=== PATIENT | female | born 1970 | race Caucasian/White ===

== ENCOUNTER → 2023-10-06 | Outpatient (CLI) | payer OTHER ==
[~2023-10-06] MED LIST: ACET325 PO; AMLO5 PO; AMOCLA875 PO; BASAGLAR K100 UNIT/6 SC; BUME1 PO; Benadryl Itch28.3 G1 TOP; CALC.25 PO; Celexa20 MG PO; FURO40 PO; GLIP2.5ER PO; HUMALOG KW100 UNIT/1 SC; INSULANPEN SC; LEVFLO500 PO; LOSA25 PO; METO25ER PO; NIFE60ER PO; PANT40 PO; SODBIC650 PO; TRAM50 PO; VISBIOME 112.51 EACH PO
== END | disposition home or self-care (01) ==
LOC: LAB SHORT 17:03 → LAB 17:03
DX: N39.0 Urinary tract infection, site not specified (principal)
CPT/HCPCS: 87077; 87086; 87186

== ENCOUNTER → 2023-10-21 | Outpatient (CLI) | payer OTHER ==
[2023-10-21 16:36] LABS: Percent Saturation 31.4 % (15.0-50.0)
== END | disposition home or self-care (01) ==
LOC: LAB SHORT 15:43
PROVIDERS: Internal Medicine Hematology & Oncology
DX: E61.1 Iron deficiency (principal)
CPT/HCPCS: 82728; 83540; 83550

== ENCOUNTER 2023-11-04 10:01 | Day surgery (SDC) | payer OTHER ==
[2023-11-04] VITALS (8 sets, daily range): BP systolic 138–218; BP diastolic 70–119
[~2023-11-04] VITALS: Ht 157.5 cm; Wt 102.1 kg
[~2023-11-04 10:01] MED LIST changes: +ARANESP100 MCG/0. SC; +CEPH250A PO; +METO2.5 PO; +VANCOCIN HCL125 MG PO; +VISBIOME PROBI1 EACH PO
[2023-11-04] MEDS ORDERED: Heparin Sodium 1000 Units/ML 10ML MDV ONE (10:27)
[2023-11-04] MEDS ORDERED: NS 100 ML IV ONE (10:27)
[2023-11-04] MEDS ORDERED: NS 500 ML IV ONE (11:46)
[2023-11-04] MEDS ORDERED: Midazolam HCl 1MG / ML 2ML Vial ONE (12:05)
[2023-11-04] MEDS ORDERED: FentaNYL Citrate 50 MCG/ML 2 ML Injection ONE (12:05)
[2023-11-04] MEDS ORDERED: Heparin Sodium 10,000 Units/ML 1ML MDV ONE ×2 (12:20→12:50)
[2023-11-04] MEDS ORDERED: HydrALAZINE HCl 20 MG / ML 1ML Vial ONE (12:39)
--- NOTE | 2023-11-04 13:24 | NUR ---
PT RETURNED TO RECOVERY ROOM IN BED. R IJ PERMCATH SITE SOFT NON-TENDER WITH NO HEMATOMA, SLIGHT OOZING INITIAL AT SUTURE SITE, OTHERWISE NO BLEEDING AND INTACT DRESSING. CALL LIGHT IN REACH.
--- NOTE | 2023-11-04 13:34 | NUR ---
NO CHANGES TO [facility] SITE. PT'S NIECE IN ROOM.
--- NOTE | 2023-11-04 13:40 | NUR ---
PT SITTING UP DRINKING APPLE JUICE AND EATING CHEESE. NO CHANGES TO [facility] SITE.
--- NOTE | 2023-11-04 14:29 | NUR ---
NO CHANGES TO R IJ PERMCATH SITE. 22 G IV DISCONTINUED FROM LEFT FA WITH INTACT CANNULA. PT ESCORTED OUT VIA WHEELCHAIR ESCORT.
== END 2023-11-04 16:04 | disposition home or self-care (01) ==
LOC: MHTC 10:01
DX: Z49.01 Encounter for fitting and adjustment of extracorporeal dialysis catheter (principal); I12.0 Hypertensive chronic kidney disease with stage 5 chronic kidney disease or end stage renal disease; E11.22 Type 2 diabetes mellitus with diabetic chronic kidney disease; N18.6 End stage renal disease; Z79.4 Long term (current) use of insulin; Z79.899 Other long term (current) drug therapy
CPT/HCPCS: 76937; 99152; 99153; C1750; C1769; J0360; J1644; J2250; J3010; J7040

== ENCOUNTER 2023-11-11 11:31 | Observation (INO) | payer OTHER ==
[2023-11-11] VITALS (13 sets, daily range): BP systolic 150–231; BP diastolic 71–127
[~2023-11-11] VITALS: Ht 157.5 cm; Wt 103.5 kg
[2023-11-11] MEDS ORDERED: Ondansetron HCl 2 MG / ML 2ML Vial IV PRN (13:05)
[2023-11-11] MEDS ORDERED: Acetaminophen 325 MG TABLET PO PRN (13:05)
[2023-11-11] MEDS ORDERED: Anticoagulant Sod Citrate Soln 3 ML SYR INJ PRN (13:30)
--- NOTE | 2023-11-11 13:32 | NUR ---
DIRECT ADMIT PT ADMITED TO RM AND SETTELED PT IS REFUSING LABS AND IV ACESSES AT THIS TIME. PT STATED SHE WAS TO COME GET DIALYSIS THEN LEAVE THAT IF THEY DO NOT HURRY UP AND DO DIALYSIS THAT SHE WILL JUST LEAVE.
--- NOTE | 2023-11-11 14:52 | NUR ---
CONTRACT PROJECT MANAGER FROM [facility] CALLED ET STATED THAT THEY NEED A CURRENT H&P,REFERRAL FOR DIALYSIS AND DIALYSIS FLOW SHEET. THEY ALSO STATED THAT PT CALLED AND NO LONGER WANTED TO BE A [facility] PT AND THAT SHE WANTED TO SWITCH. AFTER TALKING WITH PT WHILE ISRA WAS IN ROOM PT HAS AGREEED TO CONT TX WITH DR. DHALIWAL. ISRA ALSO STATED TO THIS NURSE THAT HE HAS ALREADY FILLED THE PAPERS OUT. THIS NURSE WENT AND SPOKE WITH CARE MANAGEMENT WHO SAID THEY WOULD LOOK INTO GETTING INFO OVER TO [facility].
[2023-11-11] MEDS ORDERED: Vancomycin HCl 125 MG Cap PO SCH (15:55)
[2023-11-11] MEDS ORDERED: Cephalexin Monohydrate 250 MG Cap PO SCH (16:00)
[2023-11-11] MEDS ORDERED: Sodium Bicarbonate 650 MG Tab PO PRN (16:00)
[2023-11-11] MEDS ORDERED: Calcium Acetate 667 MG Gel Cap PO SCH (17:30)
[2023-11-11] MEDS ORDERED: Insulin Human Lispro 100 Units/ML 3ML Syringe SC SCH (17:30)
--- NOTE | 2023-11-11 18:33 | NUR ---
DISCHARGE SUMMARY PT COMPLETED DIALYSIS AND DC THIS SHIFT PT STATED UNDERSTANDING RE: DC INSTRUCTION . PT HAD 1L OF FLUID REMOVED FROM DIALYSIS. DIALYSIS NURSE STATED SHE STOPPED PULLING FLUID OFF D/T PT C/O LEG CRAMPS. PT REFUSED TO RIDE IN A WHEELCHAIR DOWN TO PRIVATE VEHCLE BUT WAS ACCOMPANIED OFF UNIT AND TO PRIVATE VEHICLE BY CLEANING CREW MEMBER.
[2023-11-11] MEDS ORDERED: Insulin Glargine-Yfgn 100 Unit/mL 3 ML SYR SC SCH (21:00)
[2023-11-12] MEDS ORDERED: Pantoprazole Sodium 40 MG Tab PO SCH (06:00)
[2023-11-12] MEDS ORDERED: NIFEdipine 60 MG TabCR PO SCH (09:00)
[2023-11-12] MEDS ORDERED: Heparin Sodium,Porcine 5,000 UNIT/0.5 ML SDV SC SCH (09:00)
[2023-11-12] MEDS ORDERED: Citalopram Hydrobromide 20 MG Tab PO SCH (09:00)
[2023-11-12] MEDS ORDERED: Vitamin B Cmplx/Vit C/Folic Ac 1 Tab PO SCH (09:00)
[2023-11-12] MEDS ORDERED: Bumetanide 1 MG Tab PO SCH (09:00)
[2023-11-12] MEDS ORDERED: Metoprolol Succinate 25 MG TABCR PO SCH (09:00)
[2023-11-12] MEDS ORDERED: Losartan Potassium 25 MG Tab PO SCH (09:00)
[2023-11-13] MEDS ORDERED: Calcitriol 0.25 MCG Cap PO SCH (09:00)
== END 2023-11-11 18:37 | disposition home or self-care (01) ==
LOC: MEDS 11:31
PROVIDERS: ADMIT Internal Medicine
DX: I12.0 Hypertensive chronic kidney disease with stage 5 chronic kidney disease or end stage renal disease (principal); E11.22 Type 2 diabetes mellitus with diabetic chronic kidney disease; N18.6 End stage renal disease; D63.1 Anemia in chronic kidney disease; Z99.2 Dependence on renal dialysis; E87.5 Hyperkalemia; Z88.2 Allergy status to sulfonamides; Z88.6 Allergy status to analgesic agent; Z79.4 Long term (current) use of insulin; Z88.8 Allergy status to other drugs, medicaments and biological substances; Z79.899 Other long term (current) drug therapy; Z66 Do not resuscitate
CPT/HCPCS: A9270; G0257; G0378; J1815

== ENCOUNTER 2024-01-26 07:57 | Emergency (ER) | payer OTHER ==
[~2024-01-26] VITALS: Ht 157.5 cm; Wt 100.7 kg
[~2024-01-26 07:57] MED LIST changes: +CARV6.25 PO; +CARVEDILOL6.25 MG PO
[2024-01-26 08:01] VITALS: BP 199/105
[2024-01-26] MEDS ORDERED: Alteplase Recombinant 2 MG / Vial IV ONE ×2 (08:25)
--- NOTE | 2024-01-26 09:28 | NUR ---
DIALYSIS NURSE CONTACTED APPROX 0823AM C/O PT IN ER24 WITH A NON FUNCTIONING HEMODIALYSIS CATHETER. TO DIALYSIS RM TO PREP FOR PROCEDURE AT 0845AM. 0900AM PT RM ER24. PT SITTING IN BED STATES THAT DIALYSIS CLINIC HAS STRUGGLED WITH THE LAST FEW TREATMENTS DUE TO NON FUNCTIONING CVC. UPON INITAL ASSESSMENT CVC IS WNL. DRESSING IS CLEAN DRY AND INTACT AND DISINFECTING CAPS ON LUMENS. ARTERIAL LUMEN WAS SLUGGISH ON ASPIRATION, GIVING MINIMAL BLOOD FLOW. VENOUS LUMEN UNABLE TO ASPIRATE COMPLETELY LEAVING RESTRICTIVE FLOW. ACTIVASE/CATHFLOW ADMINISTERED INTO EACH LUMEN. PT INSTRUCTED TO CONTACT CLINIC FOR FOLLOWUP APPOINTMENT WITH OUTPATIENT.
== END 2024-01-26 09:25 | disposition home or self-care (01) ==
LOC: ER 07:57
DX: T82.49XA Other complication of vascular dialysis catheter, initial encounter (principal); Z79.4 Long term (current) use of insulin; Z79.899 Other long term (current) drug therapy
CPT/HCPCS: 36593; 99283-25; J2997

== ENCOUNTER 2024-05-19 06:13 | Emergency (ER) | payer MEDICARE, OTHER ==
[~2024-05-19] VITALS: Ht 157.5 cm; Wt 103.4 kg
[2024-05-19] MEDS ORDERED: GABA100 PO (08:49)
[2024-05-19 08:50] VITALS: BP 195/92
[2024-05-19] MEDS ORDERED: HYDHCL25 PO (08:51)
[2024-05-19 09:04] VITALS: BP 200/99
[2024-05-19 09:31] LABS: International Normalized Ratio 1.03
[2024-05-19 09:34] LABS: Bun/Creatinine Ratio 9.2 (12.0-20.0); Calcium, Blood 8.6 mg/dL (8.5-10.1); Creatinine, Blood 6.28 mg/dL (0.40-1.00); Potassium, Blood 3.8 mmol/L (3.5-5.5)
[2024-05-19] MEDS ORDERED: FentaNYL Citrate 50 MCG/ML 2 ML Injection ONE (09:53)
[2024-05-19] MEDS ORDERED: Heparin Sodium 1000 Units/ML 10ML MDV ONE (09:53)
[2024-05-19] MEDS ORDERED: Midazolam HCl 1MG / ML 2ML Vial ONE (09:53)
[2024-05-19] MEDS ORDERED: NS 2,000 ML IV ONE (09:54)
[2024-05-19] MEDS ORDERED: HydrALAZINE HCl 20 MG / ML 1ML Vial ONE (10:18)
[2024-05-19] MEDS ORDERED: Alteplase Recombinant 2 MG / Vial ONE (10:55)
[2024-05-19 11:45] VITALS: BP 173/91
--- NOTE | 2024-05-19 12:05 | NUR ---
PT VERBALIZED UNDERSTANDING OF WRITTEN AND VERBAL D/C INST. IV REMOVED. R UPPER ARM DRSG CDI, NO BLEEDING OR SWELLING.
== END 2024-05-19 07:35 | disposition left against medical advice (07) ==
LOC: ER 06:13
PROVIDERS: Radiology Diagnostic Radiology
DX: T82.898A Other specified complication of vascular prosthetic devices, implants and grafts, initial encounter (principal); N18.6 End stage renal disease; Z53.29 Procedure and treatment not carried out because of patient's decision for other reasons
CPT/HCPCS: 36905; 75710; 76937; 80048; 85610; 99152; 99153; C1725; C1769; C1887; C1894; J0360; J1644; J2250; J2997; J3010; J7030; Q9967

== ENCOUNTER 2024-07-03 06:32 | Observation (INO) | payer MEDICARE, OTHER ==
[~2024-07-03] VITALS: Ht 157.5 cm; Wt 108.2 kg
[~2024-07-03 06:32] MED LIST changes: +GABA100 PO; +HYDHCL25 PO
[2024-07-03 08:19] LABS: BASOPHILS ABSOLUTE AUTO 0.04 K/mm3 (0.00-0.23); BASOPHILS PERCENT AUTO 0 % (0-2); EOSINOPHILS PERCENT AUTO 2 % (0-6); Hematocrit 36.6 % (33.0-51.0); Hemoglobin 12.1 g/dL (11.5-16.0); IMMATURE GRAN ABSOLUTE AUTO 0.03 K/mm3 (0.00-0.10); IMMATURE GRAN PERCENT AUTO 0 % (0-1); LYMPHOCYTES ABSOLUTE AUTO 2.12 K/mm3 (0.84-5.20); LYMPHOCYTES PERCENT AUTO 21 % (21-46); MONOCYTES ABSOLUTE AUTO 0.59 K/mm3 (0.16-1.47); MONOCYTES PERCENT AUTO 6 % (4-13); Mean Corpuscular HGB 29.8 pg (26.0-34.0); Mean Corpuscular HGB Conc 33.1 g/dL (31.5-36.5); Mean Corpuscular Volume 90 fL (80-100); Mean Platelet Volume 11.7 fL (9.1-12.4); NEUTROPHILS ABSOLUTE AUTO 7.28 K/mm3 (1.96-9.15); NEUTROPHILS PERCENT AUTO 71 % (41-73); Platelet Count 195 K/mm3 (150-400); RDW Coefficient Variation 14.4 % (11.7-14.2); RDW Standard Deviation 47.6 fL (35.1-46.3); Red Blood Cell Count 4.06 M/mm3 (3.80-5.20); White Blood Cell Count 10.26 K/mm3 (4.00-11.30)
[2024-07-03 08:27] LABS: Albumin, Blood 3.8 g/dL (3.4-5.0); Bilirubin, Total 0.8 mg/dL (0.1-1.0); Bun/Creatinine Ratio 13.5 (12.0-20.0); Calcium, Blood 8.1 mg/dL (8.5-10.1); Creatinine, Blood 6.73 mg/dL (0.40-1.00); Total Protein, Blood 7.8 g/dL (6.4-8.2)
[2024-07-03] MEDS ORDERED: FLU VACC TS2024-25(6MOS UP)/PF 45 MCG/0.5 ML SYRINGE IM SCH (09:50)
[2024-07-03] MEDS ORDERED: Insulin Regular 100 UNIT/ML 10ML Vial SC SCH (11:30)
[2024-07-03 15:11] VITALS: BP 135/92
[2024-07-03] MEDS ORDERED: Bumetanide2 MG PO (15:23)
--- NOTE | 2024-07-03 18:51 | NUR ---
PT ADMITTED INTO ROOM 327 AT 1500 VIA WHEELCHAIR, AMBULATED TO BED INDEPENDANT. ORIENTED TO ROOM AND CALL LIGHT. CALL TO [facility], PLAN TO PROCEDE WITH PROCEDURE TOMORROW. PT MAY EAT DINNER AND NPO AFTER MN WITH CLEARS SPARINGLY UNTIL AM. WILL REPORT TO NOC RN
--- NOTE | 2024-07-03 18:53 | NUR ---
SUMMARY- PT A/O X4, INDEPENTANT. AWAITING GRAPH REVASC WITH DR DAVIS TOMORROW; WAS UNABLE TO FIT PT IN FOR PROCEDURE TODAY. PT TOLERATING FOOD AND FLUID. DENIES PAIN. GRAFT R SIDE/NO THRILL - PT INDEPENDANT IN THE ROOM. REPORTED ALL TO CASE OLIVAS
[2024-07-03 20:01] VITALS: BP 165/91
[2024-07-04] VITALS (7 sets, daily range): BP systolic 135–177; BP diastolic 83–121
--- NOTE | 2024-07-04 05:12 | NUR ---
SHIFT SUMMARY PATIENT IS ALERT AND ORIENTED. PATIENT HAS HAD NO ACUTE EVENTS THIS SHIFT. VITAL SIGNS REVIEWED. PATIENT HAS BEEN IND THIS SHIFT. PATIENT HAS BEEN NPO FOR GRAFT REVASC SINCE 0400. BED IN LOCKED AND LOWEST POSITION. CALL LIGHT IN PLACE.
[2024-07-04 05:59] LABS: BASOPHILS ABSOLUTE AUTO 0.04 K/mm3 (0.00-0.23); BASOPHILS PERCENT AUTO 1 % (0-2); EOSINOPHILS ABSOLUTE AUTO 0.21 K/mm3 (0.00-0.68); EOSINOPHILS PERCENT AUTO 3 % (0-6); Hematocrit 33.8 % (33.0-51.0); Hemoglobin 11.3 g/dL (11.5-16.0); IMMATURE GRAN ABSOLUTE AUTO 0.01 K/mm3 (0.00-0.10); IMMATURE GRAN PERCENT AUTO 0 % (0-1); LYMPHOCYTES ABSOLUTE AUTO 1.57 K/mm3 (0.84-5.20); LYMPHOCYTES PERCENT AUTO 22 % (21-46); MONOCYTES PERCENT AUTO 7 % (4-13); Mean Corpuscular HGB 30.3 pg (26.0-34.0); Mean Corpuscular HGB Conc 33.4 g/dL (31.5-36.5); Mean Corpuscular Volume 91 fL (80-100); Mean Platelet Volume 11.4 fL (9.1-12.4); NEUTROPHILS ABSOLUTE AUTO 4.67 K/mm3 (1.96-9.15); NEUTROPHILS PERCENT AUTO 67 % (41-73); Platelet Count 143 K/mm3 (150-400); RDW Coefficient Variation 13.7 % (11.7-14.2); RDW Standard Deviation 45.6 fL (35.1-46.3); Red Blood Cell Count 3.73 M/mm3 (3.80-5.20)
[2024-07-04 06:33] LABS: Bun/Creatinine Ratio 13.6 (12.0-20.0); Calcium, Blood 7.6 mg/dL (8.5-10.1); Creatinine, Blood 6.47 mg/dL (0.40-1.00); Potassium, Blood 4.2 mmol/L (3.5-5.5)
[2024-07-04] MEDS ORDERED: NS 500 ML IV ONE ×2 (14:24→17:02)
[2024-07-04] MEDS ORDERED: Heparin Sodium 1000 Units/ML 10ML MDV ONE ×3 (14:24→17:02)
[2024-07-04] MEDS ORDERED: NS 1,000 ML IV ONE ×3 (15:51→17:12)
[2024-07-04] MEDS ORDERED: Midazolam HCl 1MG / ML 2ML Vial ONE ×2 (15:51→16:20)
[2024-07-04] MEDS ORDERED: FentaNYL Citrate 50 MCG/ML 2 ML Injection ONE ×2 (15:51→16:59)
[2024-07-04] MEDS ORDERED: Alteplase Recombinant 2 MG / Vial ONE (16:26)
[2024-07-04] MEDS ORDERED: HydrALAZINE HCl 20 MG / ML 1ML Vial ONE (16:29)
--- NOTE | 2024-07-04 17:41 | NUR ---
PT TAKEN TO DEPUTY HEAD FOR GRAFT REVISION 1544 IN WHEELCHAIR. CALLED TELE TO INFORM OF LOCAL
--- NOTE | 2024-07-04 17:43 | NUR ---
SUMMARY-PT A/O X4, VERBAL AND PLEASANT. INDEPENDANT IN ROOM. PT NPO ALL DAY. TAKEN FOR GRAFT REVISION WITH DR DAVIS [id number], AWAITING PROCEDURES COMPLETION-
--- NOTE | 2024-07-04 19:06 | NUR ---
GRAFT PROCEDURE COMPLETE, PT BROUGHT BACK TO ROOM 1845 VIA WHEELCHAIR, SBA BACK TO BED. GRAFT COVERED WITH TEGADERM, PURSE STRINGS SHOWING. THRILL NOTED UPON LIGHT PALP. BRUISING PRESENT, WILL MONITOR. NO ACTIVE BLEEDING NOTED. VSS. PT DENIES PAIN
[2024-07-04] MEDS ORDERED: Gabapentin 100 MG Cap PO SCH (21:00)
[2024-07-04] MEDS ORDERED: Insulin Glargine-Yfgn 100 Unit/mL 3 ML SYR SC SCH (21:00)
[2024-07-05] VITALS (16 sets, daily range): BP systolic 91–155; BP diastolic 45–96
--- NOTE | 2024-07-05 04:51 | NUR ---
SHIFT SUMMARY: PATIENT A/OX4, PLEASANT AND COOPERATIVE c CARE. PATIENT DENIES GENERALIZED PAIN, CP/PRESSURE, SOB, N/V AND DIZZINESS. PATIENT ON TELE, SR HR IN THE 70'S BPM. PATIENT AMBULATED IN HALLWAY X1 THIS SHIFT. PATIENT SLEPT FOR ABOUT 5 HRS THIS SHIFT. DRESSING TO BART C/D/I. PATIENT HAS HAD NO OUTPUT THIS SHIFT, AND REPORTS SHE HARDLY PRODUCED URINE. PATIENT IS HOPING TO DIALYZE TODAY AND BE DISCHARGE HOME AFTERWARD. VITAL SIGNS REVIEWED. CALL LIGHT IN REACH.
[2024-07-05 07:09] LABS: Albumin, Blood 3.4 g/dL (3.4-5.0); Anion Gap 12 mmol/L (3-11); Blood Urea Nitrogen 77 mg/dL (8-24); Bun/Creatinine Ratio 13.1 (12.0-20.0); CO2, Blood 20 mmol/L (21-32); Calcium, Blood 7.6 mg/dL (8.5-10.1); Chloride, Blood 110 mmol/L (98-108); Creatinine, Blood 5.86 mg/dL (0.40-1.00); Glomerular Filtration Rate 8 (60-); Glucose, Blood 197 mg/dL (70-99); Magnesium, Blood 2.8 mg/dL (1.6-2.4); Phosphorus, Blood 5.2 mg/dL (2.5-4.9); Potassium, Blood 4.5 mmol/L (3.5-5.5); Sodium, Blood 137 mmol/L (136-145)
[2024-07-05] MEDS ORDERED: Carvedilol 6.25 MG Tab PO SCH (08:00)
[2024-07-05] MEDS ORDERED: Bumetanide 1 MG Tab PO SCH (09:00)
[2024-07-05] MEDS ORDERED: NIFEdipine 60 MG TabCR PO SCH (09:00)
[2024-07-05] MEDS ORDERED: Citalopram Hydrobromide 20 MG Tab PO SCH (09:00)
[2024-07-05] MEDS ORDERED: Calcitriol 0.25 MCG Cap PO SCH (09:00)
[2024-07-05] MEDS ORDERED: Heparin Sodium 1000 Units/ML 10ML MDV ONE (10:46)
[2024-07-05] MEDS ORDERED: NS 250 ML IV ONE (10:46)
[2024-07-05] MEDS ORDERED: NS 500 ML IV ONE (11:01)
--- NOTE | 2024-07-05 11:12 | NUR ---
PT UNABLE TO BE DIALIZED. CURRENTLY IN SECURITY AND COMPLIANCE PROJECT MANAGER HAVING CATH PLACED FOR DIALYSIS
[2024-07-05] MEDS ORDERED: NS 50 ML IV ONE (11:29)
[2024-07-05] MEDS ORDERED: CeFAZolin Sodium 2,000 MG VIAL ONE (11:29)
--- NOTE | 2024-07-05 12:08 | NUR ---
PT RETURNED TO FROM FROM PERMACATH PLACEMENT. RN STATES NO SEDATION, ONLY LOCAL. STATES DID HEPARIN LOCK, LOW DOSE. STATES OKAY TO USE. CALLED LINSEED CAKE TRIMMER, THEY STATE WILL COME TO ROOM TO DO DIALYSIS. VISUALIZED PERMACATH SITE. NO BLEEDING NOTED.
--- NOTE | 2024-07-05 12:51 | NUR ---
BLADDER SCAN [address] DHALIWAL NOTIFIED. PER , ASK PT TO TRY TO URINATE. AND CALL IF UNABLE. PT EDUCATED. TINY, HOOD FITTER AT BEDSIDE FOR DIALYSIS.
--- NOTE | 2024-07-05 17:12 | NUR ---
PT DISCHARGED HOME. TRANSPORT PROVIDED HOME. DISCHARGE INSTRUCTIONS DISCUSSED WITH PT. NO QUESTIONS OR CONCERNS AT THIS TIME. DIALYSIS PORT DRESSING C/D/I. PT TO CONTINUE REGULAR DIALYSIS APPIONTMENTS SCHEDULED.
== END 2024-07-05 17:17 | disposition home or self-care (01) ==
LOC: ER 06:32 → MEDS 06:33 → ERHOLD 06:33 → MEDS 15:00
PROVIDERS: Emergency Medicine; Internal Medicine Nephrology; ADMIT Family Medicine
DX: T82.868A Thrombosis due to vascular prosthetic devices, implants and grafts, initial encounter (principal); I12.0 Hypertensive chronic kidney disease with stage 5 chronic kidney disease or end stage renal disease; E11.22 Type 2 diabetes mellitus with diabetic chronic kidney disease; N18.6 End stage renal disease; K74.60 Unspecified cirrhosis of liver; D64.9 Anemia, unspecified; Z99.2 Dependence on renal dialysis; Z79.4 Long term (current) use of insulin; Z79.899 Other long term (current) drug therapy
CPT/HCPCS: 36415; 36558; 36905; 51701; 76937; 77001; 80048; 80053; 80069; 82947; 83735; 85018; 85025; 99152; 99153; 99285; A9270; C1725; C1750; C1769; C1887; C1894; G0257; G0378; J0360; J0690; J1644; J1815; J2250; J2997; J3010; J7030; J7040; J7050; Q9967

== ENCOUNTER 2024-07-19 05:25 | Emergency (ER) | payer MEDICARE, OTHER ==
[~2024-07-19] VITALS: Ht 157.5 cm; Wt 103.4 kg
[~2024-07-19 05:25] MED LIST changes: +Bumetanide2 MG PO
[2024-07-19 06:16] LABS: BASOPHILS ABSOLUTE AUTO 0.05 K/mm3 (0.00-0.23); BASOPHILS PERCENT AUTO 1 % (0-2); EOSINOPHILS ABSOLUTE AUTO 0.17 K/mm3 (0.00-0.68); EOSINOPHILS PERCENT AUTO 2 % (0-6); Hematocrit 35.8 % (33.0-51.0); Hemoglobin 11.9 g/dL (11.5-16.0); IMMATURE GRAN ABSOLUTE AUTO 0.03 K/mm3 (0.00-0.10); IMMATURE GRAN PERCENT AUTO 0 % (0-1); LYMPHOCYTES ABSOLUTE AUTO 1.32 K/mm3 (0.84-5.20); LYMPHOCYTES PERCENT AUTO 13 % (21-46); MONOCYTES ABSOLUTE AUTO 0.99 K/mm3 (0.16-1.47); MONOCYTES PERCENT AUTO 10 % (4-13); Mean Corpuscular HGB 29.8 pg (26.0-34.0); Mean Corpuscular HGB Conc 33.2 g/dL (31.5-36.5); Mean Corpuscular Volume 90 fL (80-100); Mean Platelet Volume 11.3 fL (9.1-12.4); NEUTROPHILS ABSOLUTE AUTO 7.26 K/mm3 (1.96-9.15); NEUTROPHILS PERCENT AUTO 74 % (41-73); Platelet Count 141 K/mm3 (150-400); RDW Coefficient Variation 14.3 % (11.7-14.2); RDW Standard Deviation 46.4 fL (35.1-46.3); Red Blood Cell Count 3.99 M/mm3 (3.80-5.20); White Blood Cell Count 9.82 K/mm3 (4.00-11.30)
[2024-07-19 06:37] LABS: Albumin, Blood 3.5 g/dL (3.4-5.0); Albumin/Globulin Ratio 0.9 (0.8-1.8); Bilirubin, Total 0.9 mg/dL (0.1-1.0); Bun/Creatinine Ratio 13.2 (12.0-20.0); Calcium, Blood 8.5 mg/dL (8.5-10.1); Creatinine, Blood 5.06 mg/dL (0.40-1.00); Potassium, Blood 3.9 mmol/L (3.5-5.5); Total Protein, Blood 7.5 g/dL (6.4-8.2)
[2024-07-19 13:30] VITALS: BP 183/94
== END 2024-07-19 14:24 | disposition home or self-care (01) ==
LOC: ER 05:25
PROVIDERS: Emergency Medicine
DX: T82.41XA Breakdown (mechanical) of vascular dialysis catheter, initial encounter (principal); Y71.8 Miscellaneous cardiovascular devices associated with adverse incidents, not elsewhere classified; I12.0 Hypertensive chronic kidney disease with stage 5 chronic kidney disease or end stage renal disease; E11.22 Type 2 diabetes mellitus with diabetic chronic kidney disease; N18.6 End stage renal disease; Z99.2 Dependence on renal dialysis; Z79.4 Long term (current) use of insulin
CPT/HCPCS: 80053; 85025; 93005; 93010; 99284-25

== ENCOUNTER 2024-07-20 05:28 | Observation (INO) | payer MEDICARE, OTHER ==
[~2024-07-20] VITALS: Ht 157.5 cm; Wt 105.0 kg
[2024-07-20 07:38] LABS: Bun/Creatinine Ratio 13.3 (12.0-20.0); Calcium, Blood 8.4 mg/dL (8.5-10.1); Creatinine, Blood 4.96 mg/dL (0.40-1.00)
[2024-07-20] MEDS ORDERED: FLU VACC TS2024-25(6MOS UP)/PF 45 MCG/0.5 ML SYRINGE IM ONE (10:20)
[2024-07-20] MEDS ORDERED: Insulin Regular 100 UNIT/ML 10ML Vial SC SCH (11:30)
[2024-07-20 13:29] VITALS: BP 191/96
[2024-07-20] MEDS ORDERED: HydrALAZINE HCl 20 MG / ML 1ML Vial IV PRN (13:45)
[2024-07-20] MEDS ORDERED: Acetaminophen 325 MG TABLET PO PRN (14:10)
[2024-07-20 14:25] VITALS: BP 147/86
[2024-07-20 14:26] VITALS: BP 147/86
[2024-07-20 15:46] VITALS: BP 164/96
--- NOTE | 2024-07-20 16:00 | NUR ---
ASSUMPTION OF CARE ASSUMED CARE OF PT FROM DEANDRE BENEDICT. PT RESTING IN BED COMFORTABLY, DENIES NEEDS AT THIS TIME. CALL LIGHT IN REACH.
[2024-07-20] MEDS ORDERED: Carvedilol 6.25 MG Tab PO SCH (17:00)
--- NOTE | 2024-07-20 17:09 | NUR ---
SHIFT SUMMARY NO ACUTE EVENTS SINCE ASSUMPTION OF CARE. PT RESTING PEACEFULLY IN BED. SINUS TACH @ 101. NPO FOR PERMACATH REPLACEMENT. CALL LIGHT IN REACH.
[2024-07-20 17:51] VITALS: BP 172/98
[2024-07-20 19:41] VITALS: BP 120/80
[2024-07-20] MEDS ORDERED: Gabapentin 100 MG Cap PO SCH (21:00)
[2024-07-20] MEDS ORDERED: Insulin Glargine-Yfgn 100 Unit/mL 3 ML SYR SC SCH (21:00)
[2024-07-21] VITALS (7 sets, daily range): BP systolic 132–158; BP diastolic 82–102
--- NOTE | 2024-07-21 05:54 | NUR ---
SHIFT SUMMARY S/P L UPPER CHEST PERMACATH COMPLICATIONS. NO ACUTE CHANGES OVERNIGHT. VSS, TELE IN USE. NPO SINCE 0000. PT STATES SHE DOESN'T PRODUCE MUCH URINE R/T ESRD. IND IN ROOM. REPORTS PAIN TOLERABLE. ANTICPATED SURGERY LATER TODAY. CALL LIGHT IN REACH, BED IN LOWEST POSITION, WILL REPORT TO DAY RN.
[2024-07-21 06:31] LABS: BASOPHILS ABSOLUTE AUTO 0.06 K/mm3 (0.00-0.23); BASOPHILS PERCENT AUTO 1 % (0-2); EOSINOPHILS ABSOLUTE AUTO 0.27 K/mm3 (0.00-0.68); EOSINOPHILS PERCENT AUTO 2 % (0-6); Hematocrit 34.2 % (33.0-51.0); Hemoglobin 11.6 g/dL (11.5-16.0); IMMATURE GRAN ABSOLUTE AUTO 0.04 K/mm3 (0.00-0.10); IMMATURE GRAN PERCENT AUTO 0 % (0-1); LYMPHOCYTES ABSOLUTE AUTO 2.18 K/mm3 (0.84-5.20); LYMPHOCYTES PERCENT AUTO 17 % (21-46); MONOCYTES ABSOLUTE AUTO 1.07 K/mm3 (0.16-1.47); MONOCYTES PERCENT AUTO 9 % (4-13); Mean Corpuscular HGB 30.2 pg (26.0-34.0); Mean Corpuscular HGB Conc 33.9 g/dL (31.5-36.5); Mean Corpuscular Volume 89 fL (80-100); Mean Platelet Volume 11.7 fL (9.1-12.4); NEUTROPHILS ABSOLUTE AUTO 8.88 K/mm3 (1.96-9.15); NEUTROPHILS PERCENT AUTO 71 % (41-73); Platelet Count 217 K/mm3 (150-400); RDW Coefficient Variation 14.6 % (11.7-14.2); RDW Standard Deviation 47.3 fL (35.1-46.3); Red Blood Cell Count 3.84 M/mm3 (3.80-5.20)
[2024-07-21 06:51] LABS: Albumin, Blood 3.2 g/dL (3.4-5.0); Anion Gap 12 mmol/L (3-11); Blood Urea Nitrogen 66 mg/dL (8-24); Bun/Creatinine Ratio 12.8 (12.0-20.0); CO2, Blood 22 mmol/L (21-32); Calcium, Blood 8.3 mg/dL (8.5-10.1); Chloride, Blood 106 mmol/L (98-108); Creatinine, Blood 5.16 mg/dL (0.40-1.00); Glomerular Filtration Rate 9 (60-); Glucose, Blood 145 mg/dL (70-99); Magnesium, Blood 2.4 mg/dL (1.6-2.4); Phosphorus, Blood 4.6 mg/dL (2.5-4.9); Potassium, Blood 4.1 mmol/L (3.5-5.5); Sodium, Blood 136 mmol/L (136-145)
[2024-07-21] MEDS ORDERED: Calcitriol 0.25 MCG Cap PO SCH (09:00)
[2024-07-21] MEDS ORDERED: Bumetanide 1 MG Tab PO SCH (09:00)
[2024-07-21] MEDS ORDERED: NIFEdipine 60 MG TabCR PO SCH (09:00)
[2024-07-21] MEDS ORDERED: Citalopram Hydrobromide 20 MG Tab PO SCH (09:00)
[2024-07-21] MEDS ORDERED: Heparin Sodium,Porcine 5,000 UNIT/0.5 ML SDV SC SCH (09:00)
[2024-07-21] MEDS ORDERED: Heparin Sodium 1000 Units/ML 10ML MDV ONE ×2 (10:32→14:51)
[2024-07-21] MEDS ORDERED: NS 250 ML IV ONE (10:32)
[2024-07-21] MEDS ORDERED: NS 500 ML IV ONE (13:25)
--- NOTE | 2024-07-21 13:28 | NUR ---
AFTERNOON SUMMARY PT RESTING IN BED WITH EYES CLOSED TODAY WAITING FOR PERMACATH PROCEDURE. NPO. DENIES ANY COMPLAINTS. INDEP IN ROOM. USES CALL LIGHT APPROPRIATELY.
--- NOTE | 2024-07-21 14:27 | NUR ---
PT TO COMMERCIAL RELATIONSHIP MANAGER AT THIS TIME. NOTIFIED DIALYSIS NURSE.
[2024-07-21] MEDS ORDERED: FentaNYL Citrate 50 MCG/ML 2 ML Injection ONE (14:37)
[2024-07-21] MEDS ORDERED: Midazolam HCl 1MG / ML 2ML Vial ONE (14:37)
--- NOTE | 2024-07-21 15:43 | NUR ---
ASSUMED CARE ASSUMED CARE OF THE PATIENT FROM PRIMARY RN. PT GETTING PICKED UP BY [facility] RN WHILE GETTING REPORT, PLAN TO GET NEW PERMACATH PLACED WITH POSSIBLE DIALYSIS AFTERWARDS OR IN THE MORNING IF UNABLE TO GET IN TODAY.
--- NOTE | 2024-07-21 20:19 | NUR ---
REPORT TAKEN TO ASSUME CARE OF PT AT AT THIS TIME. PT RESTING IN BED, WITH EYES CLOSED.
[2024-07-22] VITALS (14 sets, daily range): BP systolic 126–170; BP diastolic 60–96
--- NOTE | 2024-07-22 05:34 | NUR ---
SHIFT SUMMARY PT S/P NEW PERMACATH PLACEMENT. PT HAS RESTED MOST OF THE NIGHT. PERMACATH SITE WNL. PT UP AND AMBULATING INDEPENDENTLY, VITALS ARE STABLE. PLAN IS FOR DIALYISIS TODAY AND THEN DISCHARGE. PLAN OF CARE REMAINS UNCHANGED. BED IN LOWEST POSITION, CALL LIGHT WITHIN REACH.
[2024-07-22 06:06] LABS: BASOPHILS ABSOLUTE AUTO 0.06 K/mm3 (0.00-0.23); BASOPHILS PERCENT AUTO 1 % (0-2); EOSINOPHILS ABSOLUTE AUTO 0.28 K/mm3 (0.00-0.68); EOSINOPHILS PERCENT AUTO 2 % (0-6); Hematocrit 35.5 % (33.0-51.0); Hemoglobin 11.7 g/dL (11.5-16.0); IMMATURE GRAN ABSOLUTE AUTO 0.04 K/mm3 (0.00-0.10); IMMATURE GRAN PERCENT AUTO 0 % (0-1); LYMPHOCYTES ABSOLUTE AUTO 1.51 K/mm3 (0.84-5.20); LYMPHOCYTES PERCENT AUTO 12 % (21-46); MONOCYTES ABSOLUTE AUTO 0.93 K/mm3 (0.16-1.47); MONOCYTES PERCENT AUTO 7 % (4-13); Mean Corpuscular HGB 29.4 pg (26.0-34.0); Mean Corpuscular Volume 89 fL (80-100); Mean Platelet Volume 11.6 fL (9.1-12.4); NEUTROPHILS ABSOLUTE AUTO 10.13 K/mm3 (1.96-9.15); NEUTROPHILS PERCENT AUTO 78 % (41-73); Platelet Count 200 K/mm3 (150-400); RDW Coefficient Variation 14.6 % (11.7-14.2); RDW Standard Deviation 47.3 fL (35.1-46.3); Red Blood Cell Count 3.98 M/mm3 (3.80-5.20); White Blood Cell Count 12.95 K/mm3 (4.00-11.30)
[2024-07-22 06:29] LABS: Albumin, Blood 3.1 g/dL (3.4-5.0); Anion Gap 13 mmol/L (3-11); Blood Urea Nitrogen 70 mg/dL (8-24); Bun/Creatinine Ratio 14.1 (12.0-20.0); CO2, Blood 21 mmol/L (21-32); Chloride, Blood 104 mmol/L (98-108); Creatinine, Blood 4.95 mg/dL (0.40-1.00); Glomerular Filtration Rate 10 (60-); Glucose, Blood 171 mg/dL (70-99); Magnesium, Blood 2.4 mg/dL (1.6-2.4); Phosphorus, Blood 5.6 mg/dL (2.5-4.9); Potassium, Blood 4.2 mmol/L (3.5-5.5); Sodium, Blood 134 mmol/L (136-145)
--- NOTE | 2024-07-22 09:16 | NUR ---
PT TAKEN TO DIALYSIS.
[2024-07-22] MEDS ORDERED: Alteplase Recombinant 2 MG / Vial IV PRN (11:05)
[2024-07-22] MEDS ORDERED: Acetaminophen 160MG / 5ML 10.15 UDC PO PRN (11:20)
--- NOTE | 2024-07-22 15:30 | NUR ---
DISCHARGE PT WAS PROVIDED WITH WRITTEN AND VERBAL DISCHARGE INSTRUCTIONS, SHE REPORTED UNDERSTANDING. PT EDUCATED TO F/U WITH PCP WITHIN 1 WEEK REGARDING SORE THROAT/SWELLING AROUND NECK AREA (DR. YAO AWARE OF SWELLING). PT EDUCATED TO RETURN TO THE HOSPITAL IF SWELLING WORSENS, SHE IS UNABLE TO SWALLOW OR HAS DIFFICUTLY BREATHING. PT ASSISTED OUT IN W/C AT 1530.
== END 2024-07-22 15:30 | disposition home or self-care (01) ==
LOC: ER 05:28 → SURS 05:29 → ERHOLD 05:29 → SURS 12:27
PROVIDERS: Emergency Medicine; Internal Medicine Nephrology; ADMIT Family Medicine
DX: T82.41XA Breakdown (mechanical) of vascular dialysis catheter, initial encounter (principal); E11.22 Type 2 diabetes mellitus with diabetic chronic kidney disease; I12.0 Hypertensive chronic kidney disease with stage 5 chronic kidney disease or end stage renal disease; N18.6 End stage renal disease; E21.1 Secondary hyperparathyroidism, not elsewhere classified; Z99.2 Dependence on renal dialysis; Y83.8 Other surgical procedures as the cause of abnormal reaction of the patient, or of later complication, without mention of misadventure at the time of the procedure; Z79.4 Long term (current) use of insulin; Z79.899 Other long term (current) drug therapy
CPT/HCPCS: 36415; 36578; 77001; 80048; 80069; 82947; 83735; 85025; 96374; 99152; 99153; 99284; A9270; C1750; C1769; G0257; G0378; J0360; J1644; J1815; J2250; J2997; J3010; J7040; J7050; Q9967

== ENCOUNTER → 2024-11-27 | Outpatient (CLI) | payer MEDICARE, OTHER | END | disposition home or self-care (01) | LOC: LAB DAV 09:05 | DX: N18.6 End stage renal disease (principal) | CPT/HCPCS: 82330 ==

== ENCOUNTER 2024-11-29 06:11 | Emergency (ER) | payer MEDICARE, OTHER ==
[~2024-11-29] VITALS: Ht 157.5 cm; Wt 99.8 kg
[2024-11-29 07:08] LABS: BASOPHILS ABSOLUTE AUTO 0.02 K/mm3 (0.00-0.23); BASOPHILS PERCENT AUTO 0 % (0-2); EOSINOPHILS ABSOLUTE AUTO 0.08 K/mm3 (0.00-0.68); EOSINOPHILS PERCENT AUTO 1 % (0-6); Hematocrit 28.8 % (33.0-51.0); Hemoglobin 10.2 g/dL (11.5-16.0); IMMATURE GRAN ABSOLUTE AUTO 0.03 K/mm3 (0.00-0.10); IMMATURE GRAN PERCENT AUTO 1 % (0-1); LYMPHOCYTES ABSOLUTE AUTO 0.89 K/mm3 (0.84-5.20); LYMPHOCYTES PERCENT AUTO 15 % (21-46); MONOCYTES ABSOLUTE AUTO 0.74 K/mm3 (0.16-1.47); MONOCYTES PERCENT AUTO 12 % (4-13); Mean Corpuscular HGB Conc 35.4 g/dL (31.5-36.5); Mean Corpuscular Volume 85 fL (80-100); NEUTROPHILS ABSOLUTE AUTO 4.28 K/mm3 (1.96-9.15); NEUTROPHILS PERCENT AUTO 71 % (41-73); NRBC ABSOLUTE 0.00 K/mm3 (0.00-0.02); NRBC Auto 0.0 /100 WBC (0.0-0.2); Platelet Count 96 K/mm3 (150-400); RDW Coefficient Variation 13.8 % (11.7-14.2); RDW Standard Deviation 42.8 fL (35.1-46.3)
[2024-11-29 07:20] LABS: Alanine Aminotransfer (ALT/SGP 88.0 U/L (12-78); Albumin, Blood 2.6 g/dL (3.4-5.0); Albumin/Globulin Ratio 0.6 (0.8-1.8); Anion Gap 15.0 mmol/L (3-11); Aspartate Aminotrans (AST/SGOT 68.0 U/L (12-37); Bilirubin, Total 1.0 mg/dL (0.1-1.0); Blood Urea Nitrogen 69.0 mg/dL (8-24); CO2, Blood 26.0 mmol/L (21-32); Calcium, Blood 7.5 mg/dL (8.5-10.1); Chloride, Blood 93.0 mmol/L (98-108); Creatinine, Blood 7.78 mg/dL (0.40-1.00); Globulin, Blood 4.4 g/dL (2.2-4.0); Glucose, Blood 220.0 mg/dL (70-99); Potassium, Blood 3.2 mmol/L (3.5-5.5); Sodium, Blood 131.0 mmol/L (136-145); Total Protein, Blood 7.0 g/dL (6.4-8.2)
[2024-11-29 10:30] VITALS: BP 119/86
== END 2024-11-29 10:50 | disposition home or self-care (01) ==
LOC: ER 06:11
PROVIDERS: Emergency Medicine
DX: R07.89 Other chest pain (principal); E87.6 Hypokalemia; I12.0 Hypertensive chronic kidney disease with stage 5 chronic kidney disease or end stage renal disease; E11.22 Type 2 diabetes mellitus with diabetic chronic kidney disease; N18.6 End stage renal disease; Z99.2 Dependence on renal dialysis; Z79.4 Long term (current) use of insulin; Z79.899 Other long term (current) drug therapy
CPT/HCPCS: 71046; 80053; 83690; 84484; 85025; 93005; 93010; 99285-25

== ENCOUNTER → 2025-01-24 | Outpatient (CLI) | payer MEDICARE, OTHER ==
[2025-01-24 08:40] LABS: Vancomycin, Trough 2.8 ug/mL (5.0-10.0)
== END ==
LOC: LAB 07:15 → LAB SHORT 07:15
PROVIDERS: Internal Medicine Nephrology
DX: A49.9 Bacterial infection, unspecified (principal); N18.6 End stage renal disease
CPT/HCPCS: 80202

== ENCOUNTER → 2025-01-29 | Outpatient (CLI) | payer MEDICARE, OTHER ==
[~2025-01-29] MED LIST changes: -BUME1 PO; +BUME2 PO; +JANTOVEN2.5 M2; +LOSA50 PO; +SEVEC800 PO
[2025-01-29 08:27] LABS: Vancomycin, Trough 2.5 ug/mL (5.0-10.0)
== END | disposition home or self-care (01) ==
LOC: LAB DAV 07:15
PROVIDERS: Internal Medicine Nephrology
DX: N18.6 End stage renal disease (principal); A49.9 Bacterial infection, unspecified
CPT/HCPCS: 80202

== ENCOUNTER 2025-01-31 10:05 | Inpatient (IN) | payer MEDICARE, OTHER ==
[2025-01-31] VITALS (15 sets, daily range): BP systolic 149–201; BP diastolic 76–112
[~2025-01-31] VITALS: Ht 157.5 cm; Wt 110.8 kg
[~2025-01-31 10:05] MED LIST changes: -JANTOVEN2.5 M2; -LOSA50 PO; -SEVEC800 PO
[2025-01-31 10:43] LABS: BASOPHILS ABSOLUTE AUTO 0.03 K/mm3 (0.00-0.23); BASOPHILS PERCENT AUTO 0 % (0-2); EOSINOPHILS ABSOLUTE AUTO 0.36 K/mm3 (0.00-0.68); EOSINOPHILS PERCENT AUTO 5 % (0-6); Hematocrit 29.0 % (33.0-51.0); Hemoglobin 9.7 g/dL (11.5-16.0); IMMATURE GRAN ABSOLUTE AUTO 0.02 K/mm3 (0.00-0.10); IMMATURE GRAN PERCENT AUTO 0 % (0-1); LYMPHOCYTES ABSOLUTE AUTO 1.07 K/mm3 (0.84-5.20); LYMPHOCYTES PERCENT AUTO 15 % (21-46); MONOCYTES ABSOLUTE AUTO 0.47 K/mm3 (0.16-1.47); MONOCYTES PERCENT AUTO 7 % (4-13); Mean Corpuscular HGB Conc 33.4 g/dL (31.5-36.5); Mean Corpuscular Volume 91 fL (80-100); NEUTROPHILS ABSOLUTE AUTO 5.17 K/mm3 (1.96-9.15); NEUTROPHILS PERCENT AUTO 73 % (41-73); NRBC ABSOLUTE 0.00 K/mm3 (0.00-0.02); NRBC Auto 0.0 /100 WBC (0.0-0.2); Platelet Count 125 K/mm3 (150-400); RDW Coefficient Variation 14.9 % (11.7-14.2); RDW Standard Deviation 50.1 fL (35.1-46.3)
[2025-01-31 11:00] LABS: Prothrombin Time Results 11.1 Sec (9.7-11.5)
[2025-01-31 11:09] LABS: Alanine Aminotransfer (ALT/SGP 35.0 U/L (12-78); Albumin, Blood 3.6 g/dL (3.4-5.0); Albumin/Globulin Ratio 0.9 (0.8-1.8); Anion Gap 10.0 mmol/L (3-11); Aspartate Aminotrans (AST/SGOT 24.0 U/L (12-37); Bilirubin, Total 0.5 mg/dL (0.1-1.0); Blood Urea Nitrogen 52.0 mg/dL (8-24); CO2, Blood 28.0 mmol/L (21-32); Calcium, Blood 7.9 mg/dL (8.5-10.1); Chloride, Blood 102.0 mmol/L (98-108); Creatinine, Blood 5.11 mg/dL (0.40-1.00); Globulin, Blood 4.0 g/dL (2.2-4.0); Glucose, Blood 248.0 mg/dL (70-99); Potassium, Blood 3.6 mmol/L (3.5-5.5); Sodium, Blood 136.0 mmol/L (136-145); Total Protein, Blood 7.6 g/dL (6.4-8.2)
[2025-01-31] MEDS ORDERED: Darbepoetin (Pharmacy Consult) SC SCH (11:50)
[2025-01-31] MEDS ORDERED: HydrALAZINE HCl 20 MG / ML 1ML Vial IV PRN (12:30)
[2025-01-31] MEDS ORDERED: Insulin Human Lispro 100 Units/ML 3ML Syringe SC SCH ×2 (12:30→16:30)
[2025-01-31] MEDS ORDERED: Oxacillin Sod 2,000 MG in NS 100 ML IV SCH (12:44)
[2025-01-31] MEDS ORDERED: NS 250 ML IV PRN (16:25)
[2025-01-31] MEDS ORDERED: Calcium Acetate 667 MG Gel Cap PO SCH (17:30)
--- NOTE | 2025-01-31 17:35 | NUR ---
PT ADMITTED TO UNIT APPROX 1602 AFTER GOING TO DIALYSIS STRAIGHT FROM ER. PT A/Ox4, ABLE TO MAKE NEEDS KNONW. ABLE TO AMBULATE INDEPENDENLY IN ROOM. ADMISSION COMPLETED INCLUDING MED REC. 2 RN SKIN CHECK COMPLETED BY THIS RN AND MARICHUY DÍAZ. PT ORIENTED TO CALL SYSTEM AND SAFE AMBULATION. NON SLIP SOCKS PROVIDED. FIRST DOSE OF ABX HELD DUE TO PT BEING IN DIALYSIS AND PHARMACY INSTRUCTION TO START WITH 1800 DOSE. PT CURRENTLY RESTING IN BED WATCHING TV WITH BED IN LOWEST POSITION AND CALL LIGHT WITHIN REACH. ISRA SEEN PT IN ER - PT ADDED TO ISRA VISIT LIST. FACE SHEET SENT TO IR FOR PERMACATH REMOVAL AND REPLACEMENT.
[2025-01-31] MEDS ORDERED: Insulin Glargine 100 Unit/ML 3 ML SYR SC SCH (21:00)
[2025-02-01 04:15] VITALS: BP 137/91
[2025-02-01 04:35] LABS: Hematocrit 28.3 % (33.0-51.0); Hemoglobin 9.3 g/dL (11.5-16.0)
--- NOTE | 2025-02-01 04:40 | NUR ---
SHIFT SUMMARY PT A&Ox4 AND PLEASANT. NO C/O PAIN. PT NPO AT MIDNIGHT. NO ACUTE CHANGES. IND IN ROOM. BED IN LOWEST POSITION AND CALL LIGHT IN REACH.
[2025-02-01 04:52] LABS: Magnesium, Blood 2.3 mg/dL (1.6-2.4)
[2025-02-01 04:53] LABS: Albumin, Blood 3.1 g/dL (3.4-5.0); Anion Gap 8 mmol/L (3-11); Blood Urea Nitrogen 32 mg/dL (8-24); CO2, Blood 30 mmol/L (21-32); Calcium, Blood 8.2 mg/dL (8.5-10.1); Chloride, Blood 103 mmol/L (98-108); Creatinine, Blood 3.78 mg/dL (0.40-1.00); Glucose, Blood 171 mg/dL (70-99); Phosphorus, Blood 4.7 mg/dL (2.5-4.9); Potassium, Blood 3.7 mmol/L (3.5-5.5); Sodium, Blood 137 mmol/L (136-145)
[2025-02-01 07:30] VITALS: BP 162/76
[2025-02-01] MEDS ORDERED: NIFEdipine 60 MG TabCR PO SCH (09:00)
[2025-02-01] MEDS ORDERED: Vitamin B Cmplx/Vit C/Folic Ac 1 Tab PO SCH (09:00)
[2025-02-01 13:07] VITALS: BP 135/75
[2025-02-01 15:57] VITALS: BP 109/83
[2025-02-01] MEDS ORDERED: Darbepoetin Alfa In Albumn Sol 60 MCG/0.3 ML Syringe SC SCH (16:00)
--- NOTE | 2025-02-01 17:43 | NUR ---
SHIFT SUMMARY PT A&OX4, VSS, AMB IND, TOLERATING PO, AND DENIED PAIN. PERMACATH REMOVED BY AT BEDSIDE. PLAN FOR NEW PERMACATH PLACEMENT TOMORROW. PT TO BE NPO AFTER MIDNIGHT. NO OTHER ACUTE CHANGES. CALL LIGHT WITHIN REACH AND PT ABLE TO MAKE NEEDS KNOWN.
[2025-02-01 17:56] VITALS: BP 157/95
[2025-02-01 19:28] VITALS: BP 157/76
[2025-02-02 04:22] VITALS: BP 167/92
[2025-02-02 04:33] LABS: Hematocrit 30.4 % (33.0-51.0); Hemoglobin 9.5 g/dL (11.5-16.0)
--- NOTE | 2025-02-02 04:49 | NUR ---
SHIFT SUMMARY PT A&Ox4 AND PLEASANT. NO ACUTE CHANGES. NO C/O PAIN. DRESSING OVER PERMACATH SITE INTACT WITH SOME BLOOD NOTED UNDER DRESSING. VSS. BED IN LOWEST POSITION AND CALL LIGHT IN ERACH.
[2025-02-02 05:06] LABS: Albumin, Blood 3.1 g/dL (3.4-5.0); Anion Gap 8 mmol/L (3-11); Blood Urea Nitrogen 46 mg/dL (8-24); CO2, Blood 27 mmol/L (21-32); Calcium, Blood 7.9 mg/dL (8.5-10.1); Chloride, Blood 106 mmol/L (98-108); Creatinine, Blood 4.30 mg/dL (0.40-1.00); Glucose, Blood 206 mg/dL (70-99); Magnesium, Blood 2.6 mg/dL (1.6-2.4); Phosphorus, Blood 4.5 mg/dL (2.5-4.9); Potassium, Blood 3.9 mmol/L (3.5-5.5); Sodium, Blood 137 mmol/L (136-145)
[2025-02-02 07:16] VITALS: BP 153/81
[2025-02-02] MEDS ORDERED: JANTOVEN2.5 M2 ×2 (13:13)
[2025-02-02] MEDS ORDERED: Heparin Sodium 1000 Units/ML 10ML MDV ONE ×2 (13:38→15:01)
[2025-02-02] MEDS ORDERED: NS 250 ML IV ONE ×2 (13:38→15:01)
[2025-02-02] MEDS ORDERED: Midazolam HCl 1MG / ML 2ML Vial ONE (13:45)
[2025-02-02] MEDS ORDERED: NS 500 ML IV ONE (13:46)
[2025-02-02] MEDS ORDERED: FentaNYL Citrate 50 MCG/ML 2 ML Injection ONE (13:46)
[2025-02-02] MEDS ORDERED: LOSA50 PO ×2 (14:36)
[2025-02-02] MEDS ORDERED: SEVEC800 PO ×2 (14:36)
[2025-02-02 14:40] LABS: HEPATITIS B SURFACE ANTIBODY <3.10 IU/L
[2025-02-02] MEDS ORDERED: Heparin Sodium 10,000 Units/ML 1ML MDV ONE (15:30)
--- NOTE | 2025-02-02 17:30 | NUR ---
PATIENT TO BE DISCHARGED AT 1800, PATIENT CAME BACK TO FLOOR FROM PERMACATH PLACEMENT UPSET AND CRYING, PATIENT HAS THREATENTED TO LEAVE AMA, PATIENT AGREED TO STAY TWO HOURS AFTER PLACEMENT TO MONITOR SITE, FRIEND TO DRIVE PATIENT BACK TO [facility] AND POSSIBLE TO DIALYSIS TOMORROW, PATIENT REPORTED SHE IS GOING TO REFUSE DIALYSIS, RELAYED TO DIALYSIS NURSE AND DR DIANE. PATIENT HAS BEEN EDUCATED ON THE RISK OF DRIVING HERSELF HOME, BLEEDING RISKS AND CLOTTING, PATIENT CONITNUES TO REFUSE AND WANT TO GO HOME, DISCHARGE INSTRUCTIONS GIVEN TO PATIENT AND FRIEND, BOTH REFSUED FURTHER QUESTIONS AND STATED UNDERSTANDING
== END 2025-02-02 17:51 | disposition home or self-care (01) | DRG 314 ==
LOC: ER 10:05 → SURS 10:06 → MEDS 10:06
PROVIDERS: Internal Medicine Nephrology; Physician Assistant; ADMIT Internal Medicine
PROC: 3E03329 Introduction of Other Anti-infective into Peripheral Vein, Percutaneous Approach (ICD-10-PCS; 2025-01-31)
PROC: 5A1D70Z Performance of Urinary Filtration, Intermittent, Less than 6 Hours Per Day (ICD-10-PCS; 2025-01-31)
PROC: 0JPTXXZ Removal of Tunneled Vascular Access Device from Trunk Subcutaneous Tissue and Fascia, External Approach (ICD-10-PCS; principal; 2025-02-01)
PROC: 05PYX3Z Removal of Infusion Device from Upper Vein, External Approach (ICD-10-PCS; 2025-02-01)
PROC: 0JHL3XZ Insertion of Tunneled Vascular Access Device into Right Upper Leg Subcutaneous Tissue and Fascia, Percutaneous Approach (ICD-10-PCS; 2025-02-02)
PROC: 06HY33Z Insertion of Infusion Device into Lower Vein, Percutaneous Approach (ICD-10-PCS; 2025-02-02)
PROC: 05JY3ZZ Inspection of Upper Vein, Percutaneous Approach (ICD-10-PCS; 2025-02-02)
DX: T80.211A Bloodstream infection due to central venous catheter, initial encounter (principal); A41.01 Sepsis due to Methicillin susceptible Staphylococcus aureus; N18.6 End stage renal disease; I12.0 Hypertensive chronic kidney disease with stage 5 chronic kidney disease or end stage renal disease; T82.49XA Other complication of vascular dialysis catheter, initial encounter; Z68.41 Body mass index [BMI] 40.0-44.9, adult; N25.81 Secondary hyperparathyroidism of renal origin; E87.1 Hypo-osmolality and hyponatremia; I82.210 Acute embolism and thrombosis of superior vena cava; I82.290 Acute embolism and thrombosis of other thoracic veins; Y71.2 Prosthetic and other implants, materials and accessory cardiovascular devices associated with adverse incidents; D63.1 Anemia in chronic kidney disease; F32.A Depression, unspecified; E11.22 Type 2 diabetes mellitus with diabetic chronic kidney disease; E66.9 Obesity, unspecified; K74.69 Other cirrhosis of liver; E87.70 Fluid overload, unspecified; R60.0 Localized edema; Z60.2 Problems related to living alone; Z99.2 Dependence on renal dialysis; Z79.4 Long term (current) use of insulin; Z89.422 Acquired absence of other left toe(s); Z79.01 Long term (current) use of anticoagulants
CPT/HCPCS: 36415; 76937; 80053; 80069; 80202; 82947; 83735; 85014; 85018; 85025; 85610; 87040; 87340; 96365; 96366; 96376; 99152; 99153; 99284; A9270; C1750; C1769; C1887; C1894; G0257; G0378; J0881; J1644; J1815; J2250; J2700; J3010; J7040; J7050; Q9967

== ENCOUNTER 2025-02-12 05:57 | Emergency (ER) | payer MEDICARE, OTHER ==
[~2025-02-12] VITALS: Ht 162.6 cm; Wt 117.9 kg
[~2025-02-12 05:57] MED LIST changes: +JANTOVEN2.5 M2; +LOSA50 PO; +SEVEC800 PO
[2025-02-12 08:32] LABS: BASOPHILS ABSOLUTE AUTO 0.05 K/mm3 (0.00-0.23); BASOPHILS PERCENT AUTO 1 % (0-2); EOSINOPHILS ABSOLUTE AUTO 0.40 K/mm3 (0.00-0.68); EOSINOPHILS PERCENT AUTO 4 % (0-6); Hematocrit 31.2 % (33.0-51.0); Hemoglobin 10.0 g/dL (11.5-16.0); IMMATURE GRAN ABSOLUTE AUTO 0.02 K/mm3 (0.00-0.10); IMMATURE GRAN PERCENT AUTO 0 % (0-1); LYMPHOCYTES ABSOLUTE AUTO 1.30 K/mm3 (0.84-5.20); LYMPHOCYTES PERCENT AUTO 14 % (21-46); MONOCYTES ABSOLUTE AUTO 0.57 K/mm3 (0.16-1.47); MONOCYTES PERCENT AUTO 6 % (4-13); Mean Corpuscular HGB Conc 32.1 g/dL (31.5-36.5); Mean Corpuscular Volume 95 fL (80-100); NEUTROPHILS ABSOLUTE AUTO 6.77 K/mm3 (1.96-9.15); NEUTROPHILS PERCENT AUTO 74 % (41-73); NRBC ABSOLUTE 0.00 K/mm3 (0.00-0.02); NRBC Auto 0.0 /100 WBC (0.0-0.2); Platelet Count 143 K/mm3 (150-400); RDW Coefficient Variation 15.5 % (11.7-14.2); RDW Standard Deviation 53.5 fL (35.1-46.3)
[2025-02-12 08:57] LABS: Alanine Aminotransfer (ALT/SGP 28.0 U/L (12-78); Albumin, Blood 3.5 g/dL (3.4-5.0); Albumin/Globulin Ratio 0.9 (0.8-1.8); Anion Gap 12.0 mmol/L (3-11); Aspartate Aminotrans (AST/SGOT 20.0 U/L (12-37); Bilirubin, Total 0.5 mg/dL (0.1-1.0); Blood Urea Nitrogen 56.0 mg/dL (8-24); C-REACTIVE PROTEIN, EXT RANGE 1.37 mg/dL (0.000-0.300); CO2, Blood 22.0 mmol/L (21-32); Calcium, Blood 8.1 mg/dL (8.5-10.1); Chloride, Blood 106.0 mmol/L (98-108); Creatinine, Blood 4.76 mg/dL (0.40-1.00); Globulin, Blood 4.0 g/dL (2.2-4.0); Glucose, Blood 295.0 mg/dL (70-99); Potassium, Blood 3.8 mmol/L (3.5-5.5); Sodium, Blood 136.0 mmol/L (136-145); Total Protein, Blood 7.5 g/dL (6.4-8.2)
[2025-02-12] MEDS ORDERED: CefTRIAXone Sodium 1,000 MG in NS 100 ML IV ONE (09:25)
[2025-02-12] MEDS ORDERED: NS 1,000 ML IV SCH (09:30)
[2025-02-12] MEDS ORDERED: WARF2.5 PO (10:03)
[2025-02-12 10:29] LABS: Prothrombin Time Results 12.3 Sec (9.7-11.5)
[2025-02-12 11:15] VITALS: BP 171/98
[2025-02-12] MEDS ORDERED: CEPH500 PO (12:06)
[2025-02-12] MEDS ORDERED: SULTRIDS PO (12:06)
== END 2025-02-12 12:16 | disposition home or self-care (01) ==
LOC: ER 05:57
PROVIDERS: Physician Assistant
DX: L03.115 Cellulitis of right lower limb (principal); E11.22 Type 2 diabetes mellitus with diabetic chronic kidney disease; N18.6 End stage renal disease; K74.60 Unspecified cirrhosis of liver; Z86.718 Personal history of other venous thrombosis and embolism; Z79.01 Long term (current) use of anticoagulants; Z79.4 Long term (current) use of insulin; Z79.899 Other long term (current) drug therapy
CPT/HCPCS: 73590; 80053; 85025; 85610; 85730; 86140; 93971; 96365; 99284-25; J0696; J7030

== ENCOUNTER 2025-02-14 06:26 | Inpatient (IN) | payer MEDICARE, OTHER ==
[~2025-02-14] VITALS: Ht 157.5 cm; Wt 112.8 kg
[~2025-02-14 06:26] MED LIST changes: +CEPH500 PO; +SULTRIDS PO; +WARF2.5 PO
[2025-02-14 07:55] LABS: Calcium, Ionized (POC) 1.08 mmol/L (1.10-1.46); Chloride (POC) 106 mmol/L (98-108); Creatinine (POC) 4.6 mg/dL (0.6-1.0); Glucose (ISTAT POC) 271 mg/dL (70-99); Hematocrit (POC) 30.0 % (36.0-46.0); Hemoglobin (POC) 10.2 g/dL (12.0-16.0); Potassium (POC) 4.3 mmol/L (3.5-5.5); Sodium (POC) 138 mmol/L (135-148); Total CO2 (POC) 20 mmol/L (21-32)
[2025-02-14 07:57] LABS: BASOPHILS ABSOLUTE AUTO 0.03 K/mm3 (0.00-0.23); BASOPHILS PERCENT AUTO 0 % (0-2); EOSINOPHILS ABSOLUTE AUTO 0.31 K/mm3 (0.00-0.68); EOSINOPHILS PERCENT AUTO 3 % (0-6); Hematocrit 30.2 % (33.0-51.0); Hemoglobin 9.8 g/dL (11.5-16.0); IMMATURE GRAN ABSOLUTE AUTO 0.03 K/mm3 (0.00-0.10); IMMATURE GRAN PERCENT AUTO 0 % (0-1); LYMPHOCYTES ABSOLUTE AUTO 0.80 K/mm3 (0.84-5.20); LYMPHOCYTES PERCENT AUTO 9 % (21-46); MONOCYTES ABSOLUTE AUTO 0.47 K/mm3 (0.16-1.47); MONOCYTES PERCENT AUTO 5 % (4-13); Mean Corpuscular HGB Conc 32.5 g/dL (31.5-36.5); Mean Corpuscular Volume 93 fL (80-100); NEUTROPHILS ABSOLUTE AUTO 7.69 K/mm3 (1.96-9.15); NEUTROPHILS PERCENT AUTO 83 % (41-73); NRBC ABSOLUTE 0.00 K/mm3 (0.00-0.02); NRBC Auto 0.0 /100 WBC (0.0-0.2); Platelet Count 146 K/mm3 (150-400); RDW Coefficient Variation 15.3 % (11.7-14.2); RDW Standard Deviation 51.2 fL (35.1-46.3)
[2025-02-14 08:16] LABS: Anion Gap 10.0 mmol/L (3-11); Blood Urea Nitrogen 49.0 mg/dL (8-24); CO2, Blood 23.0 mmol/L (21-32); Calcium, Blood 7.8 mg/dL (8.5-10.1); Chloride, Blood 107.0 mmol/L (98-108); Creatinine, Blood 4.18 mg/dL (0.40-1.00); Glucose, Blood 277.0 mg/dL (70-99); Potassium, Blood 4.2 mmol/L (3.5-5.5); Sodium, Blood 136.0 mmol/L (136-145)
[2025-02-14] MEDS ORDERED: Heparin Sodium,Porcine 5,000 UNIT/0.5 ML SDV SC SCH (09:00)
[2025-02-14] MEDS ORDERED: Lactobacil 2-S.Thermo-Bifido 1 1 Cap PO SCH (09:00)
[2025-02-14] MEDS ORDERED: FLU VACC TS2025-26(6MOS UP)/PF 45 MCG/0.5 ML SYRINGE IM SCH (09:00)
[2025-02-14] MEDS ORDERED: BUME2 PO (09:10)
[2025-02-14] MEDS ORDERED: COREG25 MG PO (09:11)
[2025-02-14] MEDS ORDERED: Humalog KwikPen 100 SC (09:12)
[2025-02-14] MEDS ORDERED: Coumadin2.5 MG PO (09:13)
[2025-02-14 10:32] LABS: Prothrombin Time Results 12.9 Sec (9.7-11.5)
[2025-02-14 10:35] LABS: Anti-Xa UFH, PHA Monitoring <0.10 IU/mL
[2025-02-14] MEDS ORDERED: Insulin Regular 100 UNIT/ML 10ML Vial SC SCH (11:30)
[2025-02-14] MEDS ORDERED: Heparin Sodium,Porcine/0.5 NS 500 ML IV SCH (11:40)
[2025-02-14] MEDS ORDERED: Heparin Sodium 5000 Units/ML 1ML MDV IV ONE ×2 (11:40→20:55)
[2025-02-14 11:55] VITALS: BP 152/76
[2025-02-14] MEDS ORDERED: Insulin Human Lispro 100 Units/ML 3ML Syringe SC SCH (12:30)
[2025-02-14 15:41] VITALS: BP 135/51
[2025-02-14 19:14] VITALS: BP 137/82
--- NOTE | 2025-02-14 19:20 | NUR ---
PT A/OX4. PLEASANT AND COOPERATIVE WITH CARE. SBA WITH TRANSFERS DUE TO LOWER LEG PAIN/SWELLING. INDEPENDENT AT BL. NO ACUTE EVENTS ON TELE. PT TO BE NPO AT MIDNIGHT FOR IR. NO ACUTE NEEDS AT THIS TIME.
--- NOTE | 2025-02-14 19:51 | NUR ---
ASSUMPTION OF CARE ASSUMED PT'S CARE AT 1900.PT WIDE AWAKE LAYING SUPINE IN BED.BEDSIDE REPORT COMPLETED.PLAN OF CARE REVIEWED.PT DENIES PAIN,DENIES SOB,DENIES NEEDS AT THIS TIME.CALL LIGHT AND PT'S ITEMS WITHIN REACH.MONITORING ONGOING PER CAREPLAN.
[2025-02-14] MEDS ORDERED: Dose Adjust by Pharmacy XX STA (20:51)
[2025-02-14] MEDS ORDERED: Insulin Glargine-Yfgn 100 Unit/mL 3 ML SYR SC SCH (21:00)
[2025-02-14] MEDS ORDERED: Trimethoprim/Sulfamethoxazole SS Tab PO SCH (21:00)
[2025-02-14] MEDS ORDERED: Insulin Glargine 100 Unit/ML 3 ML SYR SC SCH (21:00)
[2025-02-14] MEDS ORDERED: Miconazole Nitrate 2% 85 GM PWD TOP SCH (21:00)
[2025-02-14 23:58] VITALS: BP 121/85
[2025-02-15 03:58] LABS: BASOPHILS ABSOLUTE AUTO 0.04 K/mm3 (0.00-0.23); BASOPHILS PERCENT AUTO 1 % (0-2); EOSINOPHILS ABSOLUTE AUTO 0.33 K/mm3 (0.00-0.68); EOSINOPHILS PERCENT AUTO 4 % (0-6); Hematocrit 30.8 % (33.0-51.0); Hemoglobin 9.9 g/dL (11.5-16.0); IMMATURE GRAN ABSOLUTE AUTO 0.03 K/mm3 (0.00-0.10); IMMATURE GRAN PERCENT AUTO 0 % (0-1); LYMPHOCYTES ABSOLUTE AUTO 1.32 K/mm3 (0.84-5.20); LYMPHOCYTES PERCENT AUTO 16 % (21-46); MONOCYTES ABSOLUTE AUTO 0.63 K/mm3 (0.16-1.47); MONOCYTES PERCENT AUTO 7 % (4-13); Mean Corpuscular HGB Conc 32.1 g/dL (31.5-36.5); Mean Corpuscular Volume 95 fL (80-100); NEUTROPHILS ABSOLUTE AUTO 6.12 K/mm3 (1.96-9.15); NEUTROPHILS PERCENT AUTO 72 % (41-73); NRBC ABSOLUTE 0.00 K/mm3 (0.00-0.02); NRBC Auto 0.0 /100 WBC (0.0-0.2); Platelet Count 155 K/mm3 (150-400); RDW Coefficient Variation 15.2 % (11.7-14.2); RDW Standard Deviation 52.8 fL (35.1-46.3)
[2025-02-15 04:17] VITALS: BP 174/112
[2025-02-15 04:21] LABS: Anti-Xa UFH, PHA Monitoring 0.25 IU/mL; Prothrombin Time Results 11.9 Sec (9.7-11.5)
[2025-02-15] MEDS ORDERED: Dose Adjust by Pharmacy XX STA ×2 (04:34→18:46)
[2025-02-15 04:35] LABS: Albumin, Blood 3.2 g/dL (3.4-5.0); Anion Gap 11 mmol/L (3-11); Blood Urea Nitrogen 58 mg/dL (8-24); CO2, Blood 22 mmol/L (21-32); Calcium, Blood 8.0 mg/dL (8.5-10.1); Chloride, Blood 106 mmol/L (98-108); Creatinine, Blood 4.42 mg/dL (0.40-1.00); Glucose, Blood 159 mg/dL (70-99); Phosphorus, Blood 4.8 mg/dL (2.5-4.9); Potassium, Blood 4.6 mmol/L (3.5-5.5); Sodium, Blood 134 mmol/L (136-145)
[2025-02-15] MEDS ORDERED: Heparin Sodium 5000 Units/ML 1ML MDV IV ONE ×2 (04:35→12:00)
[2025-02-15 07:40] VITALS: BP 156/90
--- NOTE | 2025-02-15 08:05 | NUR ---
PT MONITORED DURING THE SHIFT,HEPARIN GTT TITRATED PER PROTOCOL ORDERED BY PHARMACY.PRN TYLENOL PO GIVEN X1 FOR RIGHT LEG PAIN.RIGHT LEG ELEVATED ON A PILLOW.BEDSIDE REPORT GIVEN TO DAYSINFT NURSE.PT HAS BEEN NPO SINCE MIDNIGHT.BED BATH/CHG BATH COMPLETED DURING THE SHIFT.CALL LIGHT AND PT'S ITEMS WITHIN REACH.PT DENIES PAIN,DENIES NEEDS AT THIS TIME.
[2025-02-15 11:26] VITALS: BP 105/67
[2025-02-15 15:51] VITALS: BP 128/73
--- NOTE | 2025-02-15 19:10 | NUR ---
SHIFT SUMMARY PT IS A/OX4. INDEPENDENT IN THE ROOM. NO ACUTE CHANGES THROUGHOUT THIS SHIFT. AWAITING DIALYSIS CATHETER PLACEMENT. PROCEDURE EXPECTED FOR TOMORROW AROUND NOON. PT TO BE NPO AT MIDNIGHT. HEPARIN INFUSING AT 34.5 ML/HR AND 23 U/KG/HR, PER JUN. HEPARIN TO BE STOPPED AT 0800 PRIOR TO PROCEDURE. PT IS PLEASANT AND COOPERATIVE WITH CARE AND CALLS APPROPRIATELY.
[2025-02-15 19:38] VITALS: BP 129/65
[2025-02-15 23:38] VITALS: BP 138/77
[2025-02-16 00:17] LABS: BASOPHILS ABSOLUTE AUTO 0.04 K/mm3 (0.00-0.23); BASOPHILS PERCENT AUTO 1 % (0-2); EOSINOPHILS ABSOLUTE AUTO 0.28 K/mm3 (0.00-0.68); EOSINOPHILS PERCENT AUTO 4 % (0-6); Hematocrit 29.7 % (33.0-51.0); Hemoglobin 9.4 g/dL (11.5-16.0); IMMATURE GRAN ABSOLUTE AUTO 0.01 K/mm3 (0.00-0.10); IMMATURE GRAN PERCENT AUTO 0 % (0-1); LYMPHOCYTES ABSOLUTE AUTO 0.83 K/mm3 (0.84-5.20); LYMPHOCYTES PERCENT AUTO 12 % (21-46); MONOCYTES ABSOLUTE AUTO 0.44 K/mm3 (0.16-1.47); MONOCYTES PERCENT AUTO 6 % (4-13); Mean Corpuscular HGB Conc 31.6 g/dL (31.5-36.5); Mean Corpuscular Volume 95 fL (80-100); NEUTROPHILS ABSOLUTE AUTO 5.52 K/mm3 (1.96-9.15); NEUTROPHILS PERCENT AUTO 78 % (41-73); NRBC ABSOLUTE 0.00 K/mm3 (0.00-0.02); NRBC Auto 0.0 /100 WBC (0.0-0.2); Platelet Count 161 K/mm3 (150-400); RDW Coefficient Variation 15.1 % (11.7-14.2); RDW Standard Deviation 52.2 fL (35.1-46.3)
[2025-02-16 00:33] LABS: Albumin, Blood 2.9 g/dL (3.4-5.0); Anion Gap 11 mmol/L (3-11); Blood Urea Nitrogen 58 mg/dL (8-24); CO2, Blood 21 mmol/L (21-32); Calcium, Blood 7.7 mg/dL (8.5-10.1); Chloride, Blood 108 mmol/L (98-108); Creatinine, Blood 4.83 mg/dL (0.40-1.00); Glucose, Blood 188 mg/dL (70-99); Phosphorus, Blood 4.9 mg/dL (2.5-4.9); Potassium, Blood 4.1 mmol/L (3.5-5.5); Sodium, Blood 136 mmol/L (136-145)
[2025-02-16] MEDS ORDERED: Dose Adjust by Pharmacy XX STA (00:47)
[2025-02-16 03:36] VITALS: BP 142/83
[2025-02-16 07:48] VITALS: BP 142/91
[2025-02-16] MEDS ORDERED: Heparin Sodium 1000 Units/ML 10ML MDV ONE (10:22)
[2025-02-16] MEDS ORDERED: NS 250 ML IV ONE (10:22)
[2025-02-16] MEDS ORDERED: Midazolam HCl 1MG / ML 2ML Vial ONE (10:51)
[2025-02-16] MEDS ORDERED: NS 500 ML IV ONE (10:51)
[2025-02-16] MEDS ORDERED: FentaNYL Citrate 50 MCG/ML 2 ML Injection ONE (10:51)
[2025-02-16] MEDS ORDERED: Alteplase Recombinant 2 MG / Vial ONE (11:13)
[2025-02-16] MEDS ORDERED: Heparin Sodium 10,000 Units/ML 1ML MDV ONE (11:17)
[2025-02-16 11:47] VITALS: BP 130/75
[2025-02-16 12:35] VITALS: BP 135/60
[2025-02-16] MEDS ORDERED: ACET325 PO (14:29)
[2025-02-16] MEDS ORDERED: VISBIOME 112.51 EACH PO (14:30)
--- NOTE | 2025-02-16 15:40 | NUR ---
PT DISCHARGED TO HOME. DISCHARGE INSTRUCTIONS PROVIDED AND EDUCATED ON AT TIME OF DISCHARGE. ALL VALUABLES RETURNED AND SENT HOME WITH THE PT.
== END 2025-02-16 15:38 | disposition home or self-care (01) | DRG 252 ==
LOC: ER 06:26 → MEDS 06:27 → ENPENDDIS 02-16 14:14 → MEDS 02-16 15:38
PROVIDERS: Student in an Organized Health Care Education/Training Program; ADMIT Student in an Organized Health Care Education/Training Program
PROC: 067F3ZZ Dilation of Right External Iliac Vein, Percutaneous Approach (ICD-10-PCS; principal; 2025-02-16)
PROC: 0J2WXYZ Change Other Device in Lower Extremity Subcutaneous Tissue and Fascia, External Approach (ICD-10-PCS; 2025-02-16)
PROC: B5191ZZ Fluoroscopy of Inferior Vena Cava using Low Osmolar Contrast (ICD-10-PCS; 2025-02-16)
PROC: B51B1ZZ Fluoroscopy of Right Lower Extremity Veins using Low Osmolar Contrast (ICD-10-PCS; 2025-02-16)
PROC: 3E03317 Introduction of Other Thrombolytic into Peripheral Vein, Percutaneous Approach (ICD-10-PCS; 2025-02-16)
DX: T82.868A Thrombosis due to vascular prosthetic devices, implants and grafts, initial encounter (principal); N18.6 End stage renal disease; I82.421 Acute embolism and thrombosis of right iliac vein; I12.0 Hypertensive chronic kidney disease with stage 5 chronic kidney disease or end stage renal disease; D68.69 Other thrombophilia; T82.49XA Other complication of vascular dialysis catheter, initial encounter; N25.81 Secondary hyperparathyroidism of renal origin; E87.1 Hypo-osmolality and hyponatremia; Y71.2 Prosthetic and other implants, materials and accessory cardiovascular devices associated with adverse incidents; E11.22 Type 2 diabetes mellitus with diabetic chronic kidney disease; K74.60 Unspecified cirrhosis of liver; I89.0 Lymphedema, not elsewhere classified; I16.0 Hypertensive urgency; E87.70 Fluid overload, unspecified; D63.1 Anemia in chronic kidney disease; T45.516A Underdosing of anticoagulants, initial encounter; Z91.138 Patient's unintentional underdosing of medication regimen for other reason; Z79.4 Long term (current) use of insulin; Z99.2 Dependence on renal dialysis; Z79.01 Long term (current) use of anticoagulants; Z86.718 Personal history of other venous thrombosis and embolism
CPT/HCPCS: 36415; 71046; 80047; 80048; 80069; 82947; 83036; 83605; 83880; 84100; 85014; 85025; 85520; 85610; 85730; 93005; 93010; 99152; 99153; 99285-25; A9270; C1725; C1769; G0378; J1644; J1815; J2250; J2997; J3010; J7040; J7050; Q9967

== ENCOUNTER 2025-02-23 05:07 | Inpatient (IN) | payer MEDICARE, OTHER ==
[~2025-02-23] VITALS: Ht 157.5 cm; Wt 112.6 kg
[~2025-02-23 05:07] MED LIST changes: +COREG25 MG PO; +Coumadin2.5 MG PO; +Humalog KwikPen 100 SC
[2025-02-23 05:47] LABS: BASOPHILS ABSOLUTE AUTO 0.04 K/mm3 (0.00-0.23); BASOPHILS PERCENT AUTO 1 % (0-2); EOSINOPHILS ABSOLUTE AUTO 0.67 K/mm3 (0.00-0.68); EOSINOPHILS PERCENT AUTO 9 % (0-6); Hematocrit 30.5 % (33.0-51.0); Hemoglobin 9.7 g/dL (11.5-16.0); IMMATURE GRAN ABSOLUTE AUTO 0.02 K/mm3 (0.00-0.10); IMMATURE GRAN PERCENT AUTO 0 % (0-1); LYMPHOCYTES ABSOLUTE AUTO 1.01 K/mm3 (0.84-5.20); LYMPHOCYTES PERCENT AUTO 13 % (21-46); MONOCYTES ABSOLUTE AUTO 0.48 K/mm3 (0.16-1.47); MONOCYTES PERCENT AUTO 6 % (4-13); Mean Corpuscular HGB Conc 31.8 g/dL (31.5-36.5); Mean Corpuscular Volume 94 fL (80-100); NEUTROPHILS ABSOLUTE AUTO 5.36 K/mm3 (1.96-9.15); NEUTROPHILS PERCENT AUTO 71 % (41-73); NRBC ABSOLUTE 0.00 K/mm3 (0.00-0.02); NRBC Auto 0.0 /100 WBC (0.0-0.2); Platelet Count 93 K/mm3 (150-400); RDW Coefficient Variation 15.0 % (11.7-14.2); RDW Standard Deviation 51.7 fL (35.1-46.3)
[2025-02-23 06:04] LABS: Prothrombin Time Results 14.7 Sec (9.7-11.5)
[2025-02-23 06:08] LABS: Alanine Aminotransfer (ALT/SGP 34.0 U/L (12-78); Albumin, Blood 3.5 g/dL (3.4-5.0); Albumin/Globulin Ratio 0.9 (0.8-1.8); Anion Gap 10.0 mmol/L (3-11); Aspartate Aminotrans (AST/SGOT 28.0 U/L (12-37); Bilirubin, Total 0.6 mg/dL (0.1-1.0); Blood Urea Nitrogen 53.0 mg/dL (8-24); CO2, Blood 26.0 mmol/L (21-32); Calcium, Blood 7.9 mg/dL (8.5-10.1); Chloride, Blood 103.0 mmol/L (98-108); Creatinine, Blood 5.27 mg/dL (0.40-1.00); Globulin, Blood 4.1 g/dL (2.2-4.0); Glucose, Blood 196.0 mg/dL (70-99); Potassium, Blood 3.4 mmol/L (3.5-5.5); Sodium, Blood 136.0 mmol/L (136-145); Total Protein, Blood 7.6 g/dL (6.4-8.2)
[2025-02-23] MEDS ORDERED: FLU VACC TS2025-26(6MOS UP)/PF 45 MCG/0.5 ML SYRINGE IM SCH (08:30)
[2025-02-23] MEDS ORDERED: Insulin Human Lispro 100 Units/ML 3ML Syringe SC SCH (08:30)
[2025-02-23] MEDS ORDERED: Dose Adjust by Pharmacy XX STA ×2 (08:40→18:17)
[2025-02-23] MEDS ORDERED: Heparin Sodium,Porcine/0.5 NS 500 ML IV SCH (08:45)
[2025-02-23] MEDS ORDERED: Heparin Sodium 5000 Units/ML 1ML MDV IV ONE (08:45)
[2025-02-23 10:08] VITALS: BP 151/101
[2025-02-23 11:28] VITALS: BP 166/89
[2025-02-23] MEDS ORDERED: NS 1,000 ML IV ONE ×2 (12:19→12:32)
[2025-02-23] MEDS ORDERED: Heparin Sodium 1000 Units/ML 10ML MDV ONE (12:32)
[2025-02-23] MEDS ORDERED: NS 500 ML IV ONE (12:33)
[2025-02-23] MEDS ORDERED: Midazolam HCl 1MG / ML 2ML Vial ONE (12:58)
[2025-02-23] MEDS ORDERED: FentaNYL Citrate 50 MCG/ML 2 ML Injection ONE (12:59)
[2025-02-23] MEDS ORDERED: Heparin Sodium 10,000 Units/ML 1ML MDV ONE (15:16)
[2025-02-23] MEDS ORDERED: HydrALAZINE HCl 20 MG / ML 1ML Vial ONE (15:17)
--- NOTE | 2025-02-23 15:23 | NUR ---
ADMIT NOTE- PT ADMITTED THROUGH THE ED. SPOKE TO DR SUN ABOUT THE PT CONSULTS. CALLED DR DHALIWAL AND LEFT A VOICEMAIL ABOUT THE CONSULT, DR HENDRIX WAS ALREADY CALLED BY DR SUN. PT ABLE TO AMBULATE INDEPENDENTLY IN THE ROOM. HEPARIN DRIP INFUSING PER EMAR. PT HAS YEAST IN THE RIGHT GROIN AND PANNUS FOLDS. AREA CLEANED AND DRIED AND INTERDRY PLACED. PT WENT TO INJECTION MOLDING MACHINE OFFBEARER BEFORE ADMISSION Hx WAS COMPLETED, MED REC NOT COMPLETED AT THIS TIME. PASSED ON TO RM 304 RN THE PT WILL RETURN FROM INJECTION MOLDING MACHINE OFFBEARER TO ROOM 304. TELE NOTIFIED THE PT IS IN INJECTION MOLDING MACHINE OFFBEARER, AND WILL BE RETURNING TO ROOM 304.
[2025-02-23 16:14] VITALS: BP 162/101
--- NOTE | 2025-02-23 17:55 | NUR ---
PATIENT ARRIVED BACK FROM THE PLODDER OPERATOR FOR THIS RN THIS AFTERNOON. PATIENT TOLERATED PROCEDURE WELL AND DINO KNIGHT AT BEDSIDE TO DISCUSS PLAN OF TREATMENT WITH PATIENT. LABS DRAWN AND WAITING FOR ORDERS FOR MEDICATIONS. CALL LIGHT WITHIN REACH.
[2025-02-23 19:48] VITALS: BP 122/77
[2025-02-23] MEDS ORDERED: Insulin Glargine 100 Unit/ML 3 ML SYR SC SCH (21:00)
--- NOTE | 2025-02-23 21:42 | NUR ---
HOSPITALIST NOTIFIED THAT PT L FEMORAL SITE HAS SLIGHT OOZING THAT WAS NOTED BY DAY SHIFT RN AND BLOW TORCH BURNER. HOSPITALIST GAVE ORDER TO CONTINUE TO MONITOR FOR INCREASE IN BLEEDING AND IF ANY CHANGES IN PT CONDITION. PT HAS CBC SCHEDULED FOR TOMORROW MORNING.
--- NOTE | 2025-02-23 23:58 | NUR ---
V.O. for stat H+H Dr. Bigg Barker at bedside w/ V.O. for stat H+H d/t Primary RN Cuate Jones's concern for abnormal active bleeding via L fem site. MARICHUY Cuello and myself both at the bedside. Cuate to notify Dr. Barker with results. Patient A/Ox4 and conversing/laughing is acutely aware of situation.
[2025-02-24] VITALS (20 sets, daily range): BP systolic 100–171; BP diastolic 56–95
[2025-02-24 00:13] LABS: Hematocrit 26.2 % (33.0-51.0); Hemoglobin 8.2 g/dL (11.5-16.0)
--- NOTE | 2025-02-24 01:02 | NUR ---
HOSPITALIST NOFITFIED THAT PT STILL HAVING BLEEDING FROM L FEMORAL HD CATHETER PLACEMENT TODAY AND DRESSING IS GETTING MORE SATURATED. HOSPITALIST CAME TO PT ROOM TO ASSESS SURGICAL SITE AND ASSESS PT. ORDERS GIVEN TO DRAW STAT H/H TO SEE IF SIGNIFICANT BLOOD LOSS IS OCCURRING. HEPARIN DRIP STILL PAUSED PENDING H/H AND HEPARING LAB DRAW.
[2025-02-24] MEDS ORDERED: Dose Adjust by Pharmacy XX STA ×2 (01:03→09:40)
--- NOTE | 2025-02-24 01:05 | NUR ---
HOSPITALIST NOTIFIED THAT PT HGB 8.2 DOWN FROM 9.7 POST OP. PHARMACY CALLED DURING AND NOTIFIED RN THAT PT IS AT THERAPEUTIC LEVEL TO RESTART HEPARIN DRIP AT LOWEST RATE DUE TO BLEEDING CONCERNS. HOSPITALIST NOTIFIED AND AGREED THAT HEPARIN DRIP CAN RESUME. ORDERS GIVEN TO CONTINUE TO MONITOR FOR INCREASE IN BLEEDING FROM SITE AND TO KEEP PRESSURE WEIGHT IN PLACE.
[2025-02-24] MEDS ORDERED: Darbepoetin (Pharmacy Consult) SC SCH (03:45)
--- NOTE | 2025-02-24 03:51 | NUR ---
PT L FEMORAL CATH SITE CHECKED FOR INCREASE IN BLEEDING, SITE HAS NO ACUTE CHANGES AT THIS TIME, BUT PT HAD TAKEN OFF WEIGHT BAG THAT IS HOLDING PRESSURE ON SURGICAL SITE FROM YESTERDAY. PT EDUCAATED ON IMPORTANCE OF KEEPING PRESSURE TO MINIMIZE BLEEDING AND BAG PUT BACK ON TOP OF SURGICAL SITE.
--- NOTE | 2025-02-24 04:55 | NUR ---
SHIFT SUMMARY NOC PT A/O X 4. PLEASANT AND COOPERATIVE WITH CARE. POST OP VSS. PT IS POST OP DAY 1 OF FAILED RLE THROMBECTOMY, AND L FEMORAL HD CATHETER PLACEMENT. L FEMORAL CATH SITE HAS BEEN LEAKING ON AND OFF T/O SHIFT, DRESSING HAS MODERATE SATURATOIN, BUT IT HAS REMAINED UNCHANGED T/O. HOSPITALIST NOTIFIED AND CAME TO SEE PT AND ASSESS SURGICAL SITE. MD ORDERED H/H WHICH SHOWED HGB 8.2 DOWN FROM 9.7 PRE PROCEDURE, EXUDRY AND 5 LB PRESSURE WEIGHT BAG IN PLACE. HEPARIN DRIP RESTARTED AT LOWEST RATE DUE TO ONGOING BLEEDING RISK. PAIN BEING MANAGED PER EMAR. PT EXPECTED TO HAVE DIALYSIS PRIOR TO DISCHARGE TODAY. PT HS CBG 149 WITH 20 UNITS GLARGING GIVEN PER EMAR. PT CURRENTLY RESTING WITH BED IN LOWEST POSITION, AND CALL LIGHT WITHIN REACH.
--- NOTE | 2025-02-24 04:59 | NUR ---
SHIFT SUMMARY NOC PT A/O X 4. PLEASANT AND COOPERATIVE WITH CARE. POST OP VSS. PT IS POST OP DAY 1 OF FAILED RLE THROMBECTOMY, AND L FEMORAL HD CATHETER PLACEMENT. L FEMORAL CATH SITE HAS BEEN LEAKING ON AND OFF T/O SHIFT, DRESSING HAS MODERATE SATURATOIN, BUT IT HAS REMAINED UNCHANGED T/O. HOSPITALIST NOTIFIED AND CAME TO SEE PT AND ASSESS SURGICAL SITE. ORDERED H/H WHICH SHOWED HGB 8.2 DOWN FROM 9.7 PRE PROCEDURE, EXUDRY AND 5 LB PRESSURE WEIGHT BAG IN PLACE. HEPARIN DRIP RESTARTED AT LOWEST RATE DUE TO ONGOING BLEEDING RISK. PAIN BEING MANAGED PER EMAR. PT EXPECTED TO HAVE DIALYSIS PRIOR TO DISCHARGE TODAY. PT ON TELE SINUS RHYTHM 70'S PT HS CBG 149 WITH 20 UNITS GLARGING GIVEN PER EMAR. PT CURRENTLY RESTING WITH BED IN LOWEST POSITION, AND CALL LIGHT WITHIN REACH.
[2025-02-24 05:28] LABS: BASOPHILS ABSOLUTE AUTO 0.03 K/mm3 (0.00-0.23); BASOPHILS PERCENT AUTO 0 % (0-2); EOSINOPHILS ABSOLUTE AUTO 0.50 K/mm3 (0.00-0.68); EOSINOPHILS PERCENT AUTO 7 % (0-6); Hematocrit 25.8 % (33.0-51.0); Hemoglobin 8.3 g/dL (11.5-16.0); IMMATURE GRAN ABSOLUTE AUTO 0.02 K/mm3 (0.00-0.10); IMMATURE GRAN PERCENT AUTO 0 % (0-1); LYMPHOCYTES ABSOLUTE AUTO 1.03 K/mm3 (0.84-5.20); LYMPHOCYTES PERCENT AUTO 15 % (21-46); MONOCYTES ABSOLUTE AUTO 0.49 K/mm3 (0.16-1.47); MONOCYTES PERCENT AUTO 7 % (4-13); Mean Corpuscular HGB Conc 32.2 g/dL (31.5-36.5); Mean Corpuscular Volume 95 fL (80-100); NEUTROPHILS ABSOLUTE AUTO 4.85 K/mm3 (1.96-9.15); NEUTROPHILS PERCENT AUTO 70 % (41-73); NRBC ABSOLUTE 0.00 K/mm3 (0.00-0.02); NRBC Auto 0.0 /100 WBC (0.0-0.2); Platelet Count 102 K/mm3 (150-400); RDW Coefficient Variation 15.3 % (11.7-14.2); RDW Standard Deviation 52.3 fL (35.1-46.3)
[2025-02-24 05:57] LABS: Magnesium, Blood 2.3 mg/dL (1.6-2.4)
[2025-02-24 05:58] LABS: Albumin, Blood 3.0 g/dL (3.4-5.0); Anion Gap 12 mmol/L (3-11); Blood Urea Nitrogen 56 mg/dL (8-24); CO2, Blood 26 mmol/L (21-32); Calcium, Blood 7.7 mg/dL (8.5-10.1); Chloride, Blood 104 mmol/L (98-108); Creatinine, Blood 5.47 mg/dL (0.40-1.00); Glucose, Blood 157 mg/dL (70-99); Phosphorus, Blood 5.5 mg/dL (2.5-4.9); Potassium, Blood 3.5 mmol/L (3.5-5.5); Sodium, Blood 138 mmol/L (136-145)
[2025-02-24 08:49] LABS: Hematocrit 29.1 % (33.0-51.0); Hemoglobin 8.9 g/dL (11.5-16.0)
[2025-02-24 09:18] LABS: Anti-Xa UFH, PHA Monitoring 0.64 IU/mL; Prothrombin Time Results 17.1 Sec (9.7-11.5)
[2025-02-24] MEDS ORDERED: Darbepoetin Alfa In Albumn Sol 40 MCG/0.4 ML SC SCH (12:00)
--- NOTE | 2025-02-24 16:57 | NUR ---
SHIFT SUMMARY MS VIRGEN HAD DIALYSIS THIS MORNING. LEFT FEMORAL HD CATHETER DRESSING WAS CHANGED DURING DIALYSIS TREATMENT AND HAS BEEN SLOWLY SEEPING SINCE WITH ABD PAD AND 5LB WEIGHT IN PLACE TOLERATED. RIGHT LEG IS RED AND SWOLLEN. MS VIRGEN TOOK ONE DOSE OF OXY FOR PAIN RELIEF AND SAID THAT HER PAIN IS CONTROLLED "OKAY". SHE IS ABLE TO STAND WITH STEADY GAIT AND HAS BEEN MOVING AROUND THE ROOM. ON TELEMETRY IN , NO CALLS FROM FOUNDRY OPERATOR. MS VIRGEN AGREED WITH THE PLAN TO STAY IN THE HOSPITAL ON HEPARIN DRIP UNTIL INR IS THERAPEUTIC. THIS AFTERNOON SHE HAS BEEN TEARFUL AND UPSET BUT DOES NOT WANT TO DISCUSS HER FEELINGS. BED LOW, CALL LIGHT IN REACH.
[2025-02-25] VITALS (7 sets, daily range): BP systolic 121–185; BP diastolic 58–110
[2025-02-25] MEDS ORDERED: Dose Adjust by Pharmacy XX STA ×3 (00:41→17:10)
[2025-02-25 05:04] LABS: BASOPHILS ABSOLUTE AUTO 0.03 K/mm3 (0.00-0.23); BASOPHILS PERCENT AUTO 0 % (0-2); EOSINOPHILS ABSOLUTE AUTO 0.59 K/mm3 (0.00-0.68); EOSINOPHILS PERCENT AUTO 8 % (0-6); Hematocrit 25.6 % (33.0-51.0); Hemoglobin 8.2 g/dL (11.5-16.0); IMMATURE GRAN ABSOLUTE AUTO 0.03 K/mm3 (0.00-0.10); IMMATURE GRAN PERCENT AUTO 0 % (0-1); LYMPHOCYTES ABSOLUTE AUTO 1.28 K/mm3 (0.84-5.20); LYMPHOCYTES PERCENT AUTO 17 % (21-46); MONOCYTES ABSOLUTE AUTO 0.52 K/mm3 (0.16-1.47); MONOCYTES PERCENT AUTO 7 % (4-13); Mean Corpuscular HGB Conc 32.0 g/dL (31.5-36.5); Mean Corpuscular Volume 95 fL (80-100); NEUTROPHILS ABSOLUTE AUTO 5.08 K/mm3 (1.96-9.15); NEUTROPHILS PERCENT AUTO 68 % (41-73); NRBC ABSOLUTE 0.00 K/mm3 (0.00-0.02); NRBC Auto 0.0 /100 WBC (0.0-0.2); Platelet Count 75 K/mm3 (150-400); RDW Coefficient Variation 15.3 % (11.7-14.2); RDW Standard Deviation 52.4 fL (35.1-46.3)
--- NOTE | 2025-02-25 05:04 | NUR ---
SHIFT SUMMARY NOC PT A/O X 4. PLEASANT AND COOPERATIVE. VSS. HS CBG 137 WITH 20 UNITS LONG ACTING INSULING GIVEN PER EMAR. PT PAIN BEING MANAGED PER EMAR. DRESSING ON L FEMORAL HD CATH HAS SANGUINOUS DRAINAGE NOTED. RLE STILL REMAINS VERY SWOLLEN AND PAINFUL. HEPARIN INFUSING PER PHARMACY ORDERS. PT ON TELE SINUS RHYTHM IN 70'S. PT CURRENTLY RESTING WITH BED IN LOWEST POSITION, AND CALL LIGHT WITHIN REACH.
[2025-02-25 05:23] LABS: Prothrombin Time Results 16.4 Sec (9.7-11.5)
[2025-02-25] MEDS ORDERED: Heparin Sodium 5000 Units/ML 1ML MDV IV ONE ×2 (08:00→17:10)
[2025-02-25 14:29] LABS: Albumin, Blood 3.2 g/dL (3.4-5.0); Anion Gap 9 mmol/L (3-11); Blood Urea Nitrogen 36 mg/dL (8-24); CO2, Blood 32 mmol/L (21-32); Calcium, Blood 7.6 mg/dL (8.5-10.1); Chloride, Blood 99 mmol/L (98-108); Creatinine, Blood 4.41 mg/dL (0.40-1.00); Glucose, Blood 218 mg/dL (70-99); Phosphorus, Blood 4.5 mg/dL (2.5-4.9); Potassium, Blood 3.5 mmol/L (3.5-5.5); Sodium, Blood 136 mmol/L (136-145)
--- NOTE | 2025-02-25 17:58 | NUR ---
SHIFT SUMMARY PATIENT SBA IN ROOM THIS SHIFT. CONTINUES HEPARIN DRIP PER PHARMACY. SKIN PRESENTS WITH OLD SCARS, VARIOUS STAGED BRUISING THROUGHOUT LIMBS AND TORSO. HD PORT TO L THIGH INTACT, DRIED BLOOD UNDER DRESSING. DRESSING REINFORCED WITH TEGADERM, NO NEW BLEEDING NOTED. REPORTED INADEQUATE PAIN RELIEF, DOC INCREASED DOSE OF OXY FROM 5 MG TO 10MG. STATED SHE IS TIRED OF BEING A PIN CUSHION AND STATED SHE IS GOING TO REFUSE FUTURE LABS, PATIENT EDUCATED AND VERBALIZED UNDERSTANDING, FOLLOWED UP WITH A STATEMENT THAT SHE IS GOING TO LEAVE HOSPITAL TOMORROW WHETHER OR NOT LABS WERE OKAY. EDUCATED AGAIN, AGAIN VERBALIZED UNDERSTANDING. A/O X4. ABLE TO MAKE NEEDS KNOWN. CALL LIGHT IN REACH.
[2025-02-26] VITALS (19 sets, daily range): BP systolic 120–160; BP diastolic 71–103
[2025-02-26] MEDS ORDERED: Clarify Drug Order XX ONE (01:05)
--- NOTE | 2025-02-26 05:33 | NUR ---
SHIFT SUMMARY PT IS A&OX4, PLEASANT AND COOPERATIVE WITH CARE. A POWERGLIDE WAS ATTEMPTED TO BE PLACED, BUT WAS UNSUCCESSFUL. PT STATES THEY ARE "TIRED OF BEING USED A PINCUSHION FOR LABS AND CBG CHECKS". WILL RELAY TO DAY SHIFT RN, TO SEE IF POWERGLIDE PLACEMENT CAN BE ATTEMPTED AGAIN. HEPARIN DRIP IS BEING CONTINUED PER PHARMACY ORDERS. PT UP AD JENNA IN THE ROOM. PT REPORTED 8/10 RLE PAIN, MEDICATED PER EMAR. PT IS ON TELE AND WAS MAITAINING SR IN THE 70'S T/O SHIFT. PT RESTED T/O SHIFT WITH EVEN AND UNLABORED RESPIRATIONS, BED IN THE LOWEST POSITION, AND CALL LIGHT WITHIN REACH.
[2025-02-26 07:56] LABS: BASOPHILS ABSOLUTE AUTO 0.03 K/mm3 (0.00-0.23); BASOPHILS PERCENT AUTO 1 % (0-2); EOSINOPHILS ABSOLUTE AUTO 0.55 K/mm3 (0.00-0.68); EOSINOPHILS PERCENT AUTO 9 % (0-6); Hematocrit 25.7 % (33.0-51.0); Hemoglobin 8.1 g/dL (11.5-16.0); IMMATURE GRAN ABSOLUTE AUTO 0.03 K/mm3 (0.00-0.10); IMMATURE GRAN PERCENT AUTO 1 % (0-1); LYMPHOCYTES ABSOLUTE AUTO 1.26 K/mm3 (0.84-5.20); LYMPHOCYTES PERCENT AUTO 21 % (21-46); MONOCYTES ABSOLUTE AUTO 0.50 K/mm3 (0.16-1.47); MONOCYTES PERCENT AUTO 9 % (4-13); Mean Corpuscular HGB Conc 31.5 g/dL (31.5-36.5); Mean Corpuscular Volume 97 fL (80-100); NEUTROPHILS ABSOLUTE AUTO 3.53 K/mm3 (1.96-9.15); NEUTROPHILS PERCENT AUTO 60 % (41-73); NRBC ABSOLUTE 0.00 K/mm3 (0.00-0.02); NRBC Auto 0.0 /100 WBC (0.0-0.2); Platelet Count 86 K/mm3 (150-400); RDW Coefficient Variation 15.3 % (11.7-14.2); RDW Standard Deviation 53.8 fL (35.1-46.3)
[2025-02-26 08:06] LABS: Prothrombin Time Results 14.6 Sec (9.7-11.5)
[2025-02-26 08:15] LABS: Albumin, Blood 3.1 g/dL (3.4-5.0); Anion Gap 8 mmol/L (3-11); Blood Urea Nitrogen 46 mg/dL (8-24); CO2, Blood 30 mmol/L (21-32); Calcium, Blood 8.0 mg/dL (8.5-10.1); Chloride, Blood 105 mmol/L (98-108); Creatinine, Blood 5.31 mg/dL (0.40-1.00); Glucose, Blood 142 mg/dL (70-99); Magnesium, Blood 2.3 mg/dL (1.6-2.4); Phosphorus, Blood 6.1 mg/dL (2.5-4.9); Potassium, Blood 3.8 mmol/L (3.5-5.5); Sodium, Blood 139 mmol/L (136-145)
[2025-02-26] MEDS ORDERED: Dose Adjust by Pharmacy XX STA ×2 (08:43→16:05)
--- NOTE | 2025-02-26 16:43 | NUR ---
SHIFT SUMMARY PT AOX4, COOPERATIVE, ABLE TO MAKE NEEDS KNOWN. PT IS IND IN ROOM TO BATHROOM FOR VOIDING. HEPARIN INFUSING MOST OF SHIFT, DOSE ADJUSTED BY PHARMACY. TOLERATING MEDICATIONS APPROPRIATELY. DID INQUIRE ABOUT POWERGLIDE TO TAPPER BIT, TAPPER BIT DID NOT APPEAR OPTIMISTIC AFTER FAILED ATTEMPT BY NOC SHIFT. HAD DIALYSIS TODAY, REMOVED 1.5 L. AFTER DIALYSIS, PT REMIANED TIRED AND IN BED FOR REMAINDER OF SHIFT. BED IN LOWEST POSITION, CALL LIGHT WITHIN REACH.
[2025-02-27 00:26] VITALS: BP 153/74
[2025-02-27 04:18] VITALS: BP 176/87
[2025-02-27 04:43] LABS: Hematocrit 29.6 % (33.0-51.0); Hemoglobin 9.2 g/dL (11.5-16.0)
[2025-02-27 05:01] LABS: Anti-Xa UFH, PHA Monitoring 0.36 IU/mL; Prothrombin Time Results 13.3 Sec (9.7-11.5)
[2025-02-27 05:15] LABS: Albumin, Blood 3.3 g/dL (3.4-5.0); Anion Gap 10 mmol/L (3-11); Blood Urea Nitrogen 34 mg/dL (8-24); CO2, Blood 28 mmol/L (21-32); Calcium, Blood 8.8 mg/dL (8.5-10.1); Chloride, Blood 101 mmol/L (98-108); Creatinine, Blood 4.00 mg/dL (0.40-1.00); Glucose, Blood 158 mg/dL (70-99); Magnesium, Blood 2.3 mg/dL (1.6-2.4); Phosphorus, Blood 5.2 mg/dL (2.5-4.9); Potassium, Blood 4.1 mmol/L (3.5-5.5); Sodium, Blood 135 mmol/L (136-145)
[2025-02-27] MEDS ORDERED: Clarify Drug Order XX ONE (05:25)
--- NOTE | 2025-02-27 05:41 | NUR ---
SHIFT SUMMARY PT IS A&OX4, PLEASANT AND COOPERATIVE WITH CARE. HEPARIN IS BEING CONTINUED AND PT IS TOLERATING. PT DID REPORT ITCHINESS ESPECIALLY ON BACK, NECK AND ARMS. ONE TIME DOSE OF BENADRYL ORDERED AND GIVEN TO PT, WITH MILD RELIEF. UPPER LEFT ARM IV REMOVED DUE TO INABILITY TO DRAW OR FLUSH. PT RESTED T/O SHIFT WITH EVEN AND UNLABORED RESPIRATIONS, BED IN THE LOWEST POSITION, AND CALL LIGHT WITHIN REACH.
[2025-02-27 15:05] VITALS: BP 134/77
[2025-02-27 20:27] VITALS: BP 115/68
[2025-02-28] VITALS (21 sets, daily range): BP systolic 112–158; BP diastolic 51–95
[2025-02-28 05:11] LABS: BASOPHILS ABSOLUTE AUTO 0.02 K/mm3 (0.00-0.23); BASOPHILS PERCENT AUTO 0 % (0-2); EOSINOPHILS ABSOLUTE AUTO 0.49 K/mm3 (0.00-0.68); EOSINOPHILS PERCENT AUTO 9 % (0-6); Hematocrit 25.5 % (33.0-51.0); Hemoglobin 7.8 g/dL (11.5-16.0); IMMATURE GRAN ABSOLUTE AUTO 0.04 K/mm3 (0.00-0.10); IMMATURE GRAN PERCENT AUTO 1 % (0-1); LYMPHOCYTES ABSOLUTE AUTO 1.05 K/mm3 (0.84-5.20); LYMPHOCYTES PERCENT AUTO 18 % (21-46); MONOCYTES ABSOLUTE AUTO 0.53 K/mm3 (0.16-1.47); MONOCYTES PERCENT AUTO 9 % (4-13); Mean Corpuscular HGB Conc 30.6 g/dL (31.5-36.5); Mean Corpuscular Volume 98 fL (80-100); NEUTROPHILS ABSOLUTE AUTO 3.65 K/mm3 (1.96-9.15); NEUTROPHILS PERCENT AUTO 63 % (41-73); NRBC ABSOLUTE 0.00 K/mm3 (0.00-0.02); NRBC Auto 0.0 /100 WBC (0.0-0.2); Platelet Count 82 K/mm3 (150-400); RDW Coefficient Variation 15.4 % (11.7-14.2); RDW Standard Deviation 54.2 fL (35.1-46.3)
[2025-02-28 05:14] LABS: Alanine Aminotransfer (ALT/SGP 63.0 U/L (12-78); Albumin, Blood 3.0 g/dL (3.4-5.0); Albumin/Globulin Ratio 0.8 (0.8-1.8); Anion Gap 10.0 mmol/L (3-11); Aspartate Aminotrans (AST/SGOT 63.0 U/L (12-37); Bilirubin, Total 0.6 mg/dL (0.1-1.0); Blood Urea Nitrogen 42.0 mg/dL (8-24); CO2, Blood 28.0 mmol/L (21-32); Calcium, Blood 7.9 mg/dL (8.5-10.1); Chloride, Blood 102.0 mmol/L (98-108); Creatinine, Blood 4.8 mg/dL (0.40-1.00); Globulin, Blood 3.7 g/dL (2.2-4.0); Glucose, Blood 176.0 mg/dL (70-99); Magnesium, Blood 2.1 mg/dL (1.6-2.4); Phosphorus, Blood 6.4 mg/dL (2.5-4.9); Potassium, Blood 3.8 mmol/L (3.5-5.5); Sodium, Blood 136.0 mmol/L (136-145); Total Protein, Blood 6.7 g/dL (6.4-8.2)
[2025-02-28 05:15] LABS: Anti-Xa UFH, PHA Monitoring 0.3 IU/mL; Prothrombin Time Results 15.1 Sec (9.7-11.5)
[2025-02-28] MEDS ORDERED: Clarify Drug Order XX ONE (06:00)
[2025-02-28] MEDS ORDERED: Dose Adjust by Pharmacy XX STA (10:20)
--- NOTE | 2025-02-28 18:00 | NUR ---
SHIFT SUMMARY PATIENT ALERT AND INTERACTIVE. PATIENT CONTINUES TO HAVE HEPARIN GTT INFUSING WITH NO CHANGES. COUMADIN GIVEN PER ORDERS. PATIENT CONTINUES TO VERBALIZE PAIN AND SWELLING OF R THIGH. DR ERNST AWARE. PATIENT HAD DIALYSIS TODAY GROIN CATHETER IN PLACE. PATIENT HOPEFUL TO DISCHARGE TOMORROW.
[2025-03-01] VITALS (7 sets, daily range): BP systolic 116–170; BP diastolic 70–95
[2025-03-01] MEDS ORDERED: FentaNYL Citrate 50 MCG/ML 2 ML Injection IV PRN (03:35)
[2025-03-01 07:22] LABS: BASOPHILS ABSOLUTE AUTO 0.04 K/mm3 (0.00-0.23); BASOPHILS PERCENT AUTO 1 % (0-2); EOSINOPHILS ABSOLUTE AUTO 0.67 K/mm3 (0.00-0.68); EOSINOPHILS PERCENT AUTO 8 % (0-6); Hematocrit 25.1 % (33.0-51.0); Hemoglobin 7.9 g/dL (11.5-16.0); IMMATURE GRAN ABSOLUTE AUTO 0.05 K/mm3 (0.00-0.10); IMMATURE GRAN PERCENT AUTO 1 % (0-1); LYMPHOCYTES ABSOLUTE AUTO 1.21 K/mm3 (0.84-5.20); LYMPHOCYTES PERCENT AUTO 15 % (21-46); MONOCYTES ABSOLUTE AUTO 0.73 K/mm3 (0.16-1.47); MONOCYTES PERCENT AUTO 9 % (4-13); Mean Corpuscular HGB Conc 31.5 g/dL (31.5-36.5); Mean Corpuscular Volume 96 fL (80-100); NEUTROPHILS ABSOLUTE AUTO 5.63 K/mm3 (1.96-9.15); NEUTROPHILS PERCENT AUTO 68 % (41-73); NRBC ABSOLUTE 0.00 K/mm3 (0.00-0.02); NRBC Auto 0.0 /100 WBC (0.0-0.2); Platelet Count 72 K/mm3 (150-400); RDW Coefficient Variation 15.8 % (11.7-14.2); RDW Standard Deviation 55.5 fL (35.1-46.3)
[2025-03-01 07:46] LABS: Anti-Xa UFH, PHA Monitoring 0.22 IU/mL; Prothrombin Time Results 22.7 Sec (9.7-11.5)
[2025-03-01 07:49] LABS: Alanine Aminotransfer (ALT/SGP 61 U/L (12-78); Albumin, Blood 3.1 g/dL (3.4-5.0); Albumin/Globulin Ratio 0.8 (0.8-1.8); Anion Gap 6 mmol/L (3-11); Aspartate Aminotrans (AST/SGOT 49 U/L (12-37); Bilirubin, Total 0.5 mg/dL (0.1-1.0); Blood Urea Nitrogen 31 mg/dL (8-24); CO2, Blood 32 mmol/L (21-32); Calcium, Blood 8.4 mg/dL (8.5-10.1); Chloride, Blood 102 mmol/L (98-108); Creatinine, Blood 3.87 mg/dL (0.40-1.00); Globulin, Blood 3.8 g/dL (2.2-4.0); Glucose, Blood 108 mg/dL (70-99); Magnesium, Blood 2.2 mg/dL (1.6-2.4); Phosphorus, Blood 4.1 mg/dL (2.5-4.9); Potassium, Blood 4.1 mmol/L (3.5-5.5); Sodium, Blood 136 mmol/L (136-145); Total Protein, Blood 6.9 g/dL (6.4-8.2)
[2025-03-01] MEDS ORDERED: Dose Adjust by Pharmacy XX STA (07:57)
[2025-03-01] MEDS ORDERED: Heparin Sodium 5000 Units/ML 1ML MDV IV ONE ×2 (08:00→20:20)
--- NOTE | 2025-03-01 19:35 | NUR ---
SHIFT SUMMARY PT A&OX4. PT ADMITTED DUE TO DVT WITH THROMBOPHLEBITIS. PT REPORTS PAIN IN R LEG, PAIN MANAGED PER EMAR. PT DID NOT HAVE DIALYSIS TODAY. PT GOT NON DIALYSIS MEDS TODAY. PT SBA IN ROOM. HEPARIN DRIP INFUSING. PT GOT HEPARIN BOLUS THIS AM AND ADJUST PER PHARMACY. PT ACHS. INSULIN GIVEN. PT ON TELE, NO REPORTS NOTED. PT GOT COUMADIN DOSE TODAY. VSS. PT HAS R FEMORAL PERM CATH FOR DIALYSIS. PT L BP ONLY. PT IN BED, BED IN LOWEST POSITION, LOCKED, CALL LIGHT IN REACH.
[2025-03-02 00:17] VITALS: BP 131/73
[2025-03-02 03:13] LABS: BASOPHILS ABSOLUTE AUTO 0.03 K/mm3 (0.00-0.23); BASOPHILS PERCENT AUTO 1 % (0-2); EOSINOPHILS ABSOLUTE AUTO 0.48 K/mm3 (0.00-0.68); EOSINOPHILS PERCENT AUTO 9 % (0-6); Hematocrit 25.6 % (33.0-51.0); Hemoglobin 7.8 g/dL (11.5-16.0); IMMATURE GRAN ABSOLUTE AUTO 0.06 K/mm3 (0.00-0.10); IMMATURE GRAN PERCENT AUTO 1 % (0-1); LYMPHOCYTES ABSOLUTE AUTO 1.10 K/mm3 (0.84-5.20); LYMPHOCYTES PERCENT AUTO 20 % (21-46); MONOCYTES ABSOLUTE AUTO 0.55 K/mm3 (0.16-1.47); MONOCYTES PERCENT AUTO 10 % (4-13); Mean Corpuscular HGB Conc 30.5 g/dL (31.5-36.5); Mean Corpuscular Volume 98 fL (80-100); NEUTROPHILS ABSOLUTE AUTO 3.26 K/mm3 (1.96-9.15); NEUTROPHILS PERCENT AUTO 60 % (41-73); NRBC ABSOLUTE 0.00 K/mm3 (0.00-0.02); NRBC Auto 0.0 /100 WBC (0.0-0.2); Platelet Count 76 K/mm3 (150-400); RDW Coefficient Variation 15.6 % (11.7-14.2); RDW Standard Deviation 55.6 fL (35.1-46.3)
[2025-03-02 03:37] LABS: Alanine Aminotransfer (ALT/SGP 55.0 U/L (12-78); Albumin, Blood 3.0 g/dL (3.4-5.0); Albumin/Globulin Ratio 0.8 (0.8-1.8); Anion Gap 11.0 mmol/L (3-11); Aspartate Aminotrans (AST/SGOT 43.0 U/L (12-37); Bilirubin, Total 0.5 mg/dL (0.1-1.0); Blood Urea Nitrogen 37.0 mg/dL (8-24); CO2, Blood 27.0 mmol/L (21-32); Calcium, Blood 8.3 mg/dL (8.5-10.1); Chloride, Blood 103.0 mmol/L (98-108); Creatinine, Blood 4.63 mg/dL (0.40-1.00); Globulin, Blood 3.7 g/dL (2.2-4.0); Glucose, Blood 165.0 mg/dL (70-99); Magnesium, Blood 2.4 mg/dL (1.6-2.4); Phosphorus, Blood 5.5 mg/dL (2.5-4.9); Potassium, Blood 4.4 mmol/L (3.5-5.5); Sodium, Blood 137.0 mmol/L (136-145); Total Protein, Blood 6.7 g/dL (6.4-8.2)
[2025-03-02] MEDS ORDERED: Dose Adjust by Pharmacy XX STA ×2 (03:39→09:40)
[2025-03-02 04:17] VITALS: BP 131/75
--- NOTE | 2025-03-02 05:42 | NUR ---
PASTRY ARTIST SUMMARY PT A&OX4, VSS. ABLE TO COMMUNICATE NEEDS APPROPRIATELY. HAS BEEN ASLEEP FOR MOST OF THE NIGHT. CHEST RISE/RESPIRATIONS NOTED. REMAINS ON TELE. SR AT 64. HEPARIN INFUSION CONTINUES TO RUN. RATE CHANGED BY PHARMACY TO 36.0 ML/HR. OXYCODONE ADMIN X 1 W/ GOOD EFFECT. BED RAILS UP X 2, BED IN LOWEST POSITION, BED WHEELS LOCKED, PERSONAL BELONGINGS AND CALL LIGHT WITHIN REACH FOR SAFETY.
[2025-03-02 08:17] VITALS: BP 159/84
[2025-03-02 09:26] LABS: Anti-Xa UFH, PHA Monitoring 0.35 IU/mL; Prothrombin Time Results 30.8 Sec (9.7-11.5)
--- NOTE | 2025-03-02 10:23 | NUR ---
PATIENT SCHEDULED FOR HEMODIALYSIS THIS MORNING, CALLED TO PRIMARY CARE TEAM TO COORDINATE AND WAS INFORMED PT IS REFUSING DIALYSIS TODAY.
[2025-03-02 11:47] VITALS: BP 118/67
[2025-03-02 16:05] VITALS: BP 150/81
--- NOTE | 2025-03-02 16:50 | NUR ---
End of shift summary: Patient is alert and oriented x4; anxious and irrated regarding staying another night. Patient wanted to go home today and refused dialysis this am; discussed with patient the risk of going home and patient tentatively agreed to stay another night and receive dialysis in am. She still remains upset and is verbal in her desire and frustration. All medications administered per EMAR. Patient heparin gttp discontinued per orders and patient IV is currently SL. Patient has refused breakfast and lunch and has not eaten today; lunch dose of insulin held. Denies SOB, CP, N/V/D today. Bed in lowest position and call light within reach. Will conitinue to monitor until next shift nurse arrives and report is given. Plan for dialysis in am and will discharge home tomorrow.
--- NOTE | 2025-03-02 21:47 | NUR ---
AMA LEAVE PT LEFT AMA TODAY AT 0. AUTHOR AND GORDO OMALLEY RN/ASBESTOS COVERER EXPLAINED RISKS/BENEFITS TO PT. PT VERBALIZED UNDERSTANDING TO EDUCATION REGARDING RISKS/BENEFITS WITH LEAVING AMA. L HAND IV REMOVED AND WRAPPED W/ GAUZE AND COBAN. DR. DALEY NOTIFIED. AMA FORM SIGNED AND PLACED IN CHART. PT WALKED OUT OF MEDICAL FLOOR W/ BELONGINGS.
== END 2025-03-02 21:35 | disposition left against medical advice (07) | DRG 314 ==
LOC: ER 05:07 → MEDS 05:08
PROVIDERS: Internal Medicine; Internal Medicine Nephrology; Student in an Organized Health Care Education/Training Program; ADMIT Student in an Organized Health Care Education/Training Program
PROC: 5A1D70Z Performance of Urinary Filtration, Intermittent, Less than 6 Hours Per Day (ICD-10-PCS; principal; 2025-02-23)
PROC: 06PYX3Z Removal of Infusion Device from Lower Vein, External Approach (ICD-10-PCS; 2025-02-23)
PROC: 06HN33Z Insertion of Infusion Device into Left Femoral Vein, Percutaneous Approach (ICD-10-PCS; 2025-02-23)
DX: T80.1XXA Vascular complications following infusion, transfusion and therapeutic injection, initial encounter (principal); N18.6 End stage renal disease; I82.431 Acute embolism and thrombosis of right popliteal vein; I12.0 Hypertensive chronic kidney disease with stage 5 chronic kidney disease or end stage renal disease; D68.51 Activated protein C resistance; I82.411 Acute embolism and thrombosis of right femoral vein; E87.1 Hypo-osmolality and hyponatremia; Z68.42 Body mass index [BMI] 45.0-49.9, adult; K74.60 Unspecified cirrhosis of liver; Z53.29 Procedure and treatment not carried out because of patient's decision for other reasons; Z99.2 Dependence on renal dialysis; E11.22 Type 2 diabetes mellitus with diabetic chronic kidney disease; D63.1 Anemia in chronic kidney disease; D50.9 Iron deficiency anemia, unspecified; E66.9 Obesity, unspecified; D69.6 Thrombocytopenia, unspecified; Z98.890 Other specified postprocedural states; Z79.4 Long term (current) use of insulin; Z79.01 Long term (current) use of anticoagulants; Z79.899 Other long term (current) drug therapy; Y83.8 Other surgical procedures as the cause of abnormal reaction of the patient, or of later complication, without mention of misadventure at the time of the procedure
CPT/HCPCS: 36415; 76937; 76998; 80053; 80069; 82947; 83735; 84100; 85014; 85018; 85025; 85520; 85610; 85730; 93005; 93010; 96365; 96366; 99152; 99153; 99285-25; A9270; C1769; C1894; G0378; J0360; J0881; J1644; J1815; J2250; J3010; J7030; J7040

== ENCOUNTER → 2025-03-14 | Outpatient (CLI) | payer MEDICARE, OTHER ==
[~2025-03-14] MED LIST changes: +Percocet 5-3251 EACH PO
[2025-03-14 08:48] LABS: Prothrombin Time Results 12.8 Sec (9.7-11.5)
== END ==
LOC: LAB SHORT 07:30 → LAB 07:30
PROVIDERS: Nurse Practitioner Family
DX: D68.8 Other specified coagulation defects (principal)
CPT/HCPCS: 85610

== ENCOUNTER 2025-03-20 05:25 | Observation (INO) | payer MEDICARE, OTHER ==
[~2025-03-20] VITALS: Ht 157.5 cm; Wt 114.4 kg
[2025-03-20] VITALS (15 sets, daily range): BP systolic 128–194; BP diastolic 72–103
[~2025-03-20 05:25] MED LIST changes: -Percocet 5-3251 EACH PO
[2025-03-20 05:50] LABS: BASOPHILS ABSOLUTE AUTO 0.05 K/mm3 (0.00-0.23); BASOPHILS PERCENT AUTO 1 % (0-2); EOSINOPHILS ABSOLUTE AUTO 0.68 K/mm3 (0.00-0.68); EOSINOPHILS PERCENT AUTO 9 % (0-6); Hematocrit 25.8 % (33.0-51.0); Hemoglobin 8.1 g/dL (11.5-16.0); IMMATURE GRAN ABSOLUTE AUTO 0.02 K/mm3 (0.00-0.10); IMMATURE GRAN PERCENT AUTO 0 % (0-1); LYMPHOCYTES ABSOLUTE AUTO 1.09 K/mm3 (0.84-5.20); LYMPHOCYTES PERCENT AUTO 14 % (21-46); MONOCYTES ABSOLUTE AUTO 0.48 K/mm3 (0.16-1.47); MONOCYTES PERCENT AUTO 6 % (4-13); Mean Corpuscular HGB Conc 31.4 g/dL (31.5-36.5); Mean Corpuscular Volume 96 fL (80-100); NEUTROPHILS ABSOLUTE AUTO 5.59 K/mm3 (1.96-9.15); NEUTROPHILS PERCENT AUTO 71 % (41-73); NRBC ABSOLUTE 0.00 K/mm3 (0.00-0.02); NRBC Auto 0.0 /100 WBC (0.0-0.2); Platelet Count 157 K/mm3 (150-400); RDW Coefficient Variation 15.1 % (11.7-14.2); RDW Standard Deviation 52.9 fL (35.1-46.3)
[2025-03-20 06:04] LABS: Prothrombin Time Results 16.7 Sec (9.7-11.5)
[2025-03-20 06:13] LABS: Alanine Aminotransfer (ALT/SGP 23.0 U/L (12-78); Albumin, Blood 3.4 g/dL (3.4-5.0); Albumin/Globulin Ratio 0.8 (0.8-1.8); Anion Gap 12.0 mmol/L (3-11); Aspartate Aminotrans (AST/SGOT 21.0 U/L (12-37); Bilirubin, Total 0.6 mg/dL (0.1-1.0); Blood Urea Nitrogen 47.0 mg/dL (8-24); CO2, Blood 20.0 mmol/L (21-32); Calcium, Blood 8.1 mg/dL (8.5-10.1); Chloride, Blood 110.0 mmol/L (98-108); Creatinine, Blood 5.08 mg/dL (0.40-1.00); Globulin, Blood 4.0 g/dL (2.2-4.0); Glucose, Blood 229.0 mg/dL (70-99); Potassium, Blood 3.8 mmol/L (3.5-5.5); Sodium, Blood 138.0 mmol/L (136-145); Total Protein, Blood 7.4 g/dL (6.4-8.2)
[2025-03-20 07:21] LABS: pH Blood Venous 7.34 (7.34-7.37)
[2025-03-20] MEDS ORDERED: FLU VACC TS2025-26(6MOS UP)/PF 45 MCG/0.5 ML SYRINGE IM ONE (08:55)
[2025-03-20] MEDS ORDERED: Heparin Sodium,Porcine 5,000 UNIT/0.5 ML SDV SC SCH (09:00)
[2025-03-20] MEDS ORDERED: Insulin Regular 100 UNIT/ML 10ML Vial SC SCH (12:00)
[2025-03-20] MEDS ORDERED: Percocet 5-3251 EACH PO ×2 (12:14)
[2025-03-20] MEDS ORDERED: CALC.25 PO ×2 (12:16)
[2025-03-20] MEDS ORDERED: NS 500 ML IV ONE (12:24)
[2025-03-20] MEDS ORDERED: Heparin Sodium 1000 Units/ML 10ML MDV ONE (12:24)
[2025-03-20] MEDS ORDERED: NS 1,000 ML IV ONE (12:46)
[2025-03-20] MEDS ORDERED: FentaNYL Citrate 50 MCG/ML 2 ML Injection ONE (12:46)
[2025-03-20] MEDS ORDERED: Midazolam HCl 1MG / ML 2ML Vial ONE (12:46)
[2025-03-20] MEDS ORDERED: Heparin Sodium 10,000 Units/ML 1ML MDV ONE (13:26)
[2025-03-20] MEDS ORDERED: HydrALAZINE HCl 20 MG / ML 1ML Vial IV PRN (14:15)
[2025-03-20] MEDS ORDERED: OxyCODONE 5 mg/Acetamin 325 mg TABLET PO PRN (14:15)
--- NOTE | 2025-03-20 18:38 | NUR ---
PT AOX4 AND COOPERATIVE OF CARE. PT WAS ABLE TO HAVE NEW DIALYSIS PORT REPLACED L [facility]. SOON PORT WAS PLACED PT WAS TAKEN TO DIALYSIS, BUT WAS NOT ABLE TO DO DIALYSIS LONG ENOUGH PER DIALYSIS NURSE. PT WILL NEED ANOTHER ROUND OF DIALYSIS IN THE AM. CALL LIGHT IS NOW IN REACH AND PT IS SETTLED BACK IN TO ROOM. WILL CONTIUE TO MONITOR.
[2025-03-20] MEDS ORDERED: Insulin Glargine 100 Unit/ML 3 ML SYR SC SCH (21:00)
[2025-03-21] VITALS (13 sets, daily range): BP systolic 94–144; BP diastolic 63–86
--- NOTE | 2025-03-21 03:55 | NUR ---
SHIFT SUMMARY: PT IS AOX4. PERMACATH SITE STARTED BLEEDING AND A PRESSURE DRESSING WAS APPLIED TO STOP BLEEDING. PT IS IND AND ABLE TO MAKE NEEDS KNOWN. PT NO LONGER NPO SO BLOOD SUGARS WERE CHANGED FROM Q6 TO AC/HS PER DOCTORS ORDERS. PT TO HAVE DIALYSIS TOMORROW AND DISCHARGE AFTER PER HOSPITALIST.
[2025-03-21 05:25] LABS: Prothrombin Time Results 21.7 Sec (9.7-11.5)
[2025-03-21] MEDS ORDERED: Insulin Regular 100 UNIT/ML 10ML Vial SC SCH (07:30)
[2025-03-21] MEDS ORDERED: Miconazole Nitrate 2% 85 GM PWD TOP SCH (09:00)
== END 2025-03-21 12:26 | disposition home or self-care (01) ==
LOC: ER 05:25 → MEDS 05:26
PROVIDERS: Emergency Medicine; ADMIT Family Medicine
DX: T82.42XA Displacement of vascular dialysis catheter, initial encounter (principal); I12.0 Hypertensive chronic kidney disease with stage 5 chronic kidney disease or end stage renal disease; E11.22 Type 2 diabetes mellitus with diabetic chronic kidney disease; N18.6 End stage renal disease; D63.1 Anemia in chronic kidney disease; N25.81 Secondary hyperparathyroidism of renal origin; E11.3299 Type 2 diabetes mellitus with mild nonproliferative diabetic retinopathy without macular edema, unspecified eye; Z99.2 Dependence on renal dialysis; Z89.429 Acquired absence of other toe(s), unspecified side
CPT/HCPCS: 36415; 36558; 36597; 71045; 76937; 80053; 82803; 82947; 84132; 85018; 85025; 85610; 93005; 93010; 99152; 99153; 99285-25; A9270; C1750; C1769; C1894; G0257; G0378; J1644; J1815; J2250; J3010; J7030; J7040

== ENCOUNTER → 2025-03-26 | Outpatient (CLI) | payer MEDICARE, OTHER ==
[~2025-03-26] MED LIST changes: +Percocet 5-3251 EACH PO
[2025-03-26 08:40] LABS: Prothrombin Time Results 15.5 Sec (9.7-11.5)
== END ==
LOC: LAB SHORT 07:10 → LAB 07:10
PROVIDERS: Nurse Practitioner Family
DX: I82.491 Acute embolism and thrombosis of other specified deep vein of right lower extremity (principal)
CPT/HCPCS: 85610

== ENCOUNTER → 2025-03-30 | Outpatient (CLI) | payer MEDICARE, OTHER ==
[2025-03-30 09:33] LABS: Prothrombin Time Results 17.9 Sec (9.7-11.5)
== END ==
LOC: LAB SHORT 07:00 → LAB 07:00
PROVIDERS: Internal Medicine Nephrology
DX: N18.6 End stage renal disease (principal); I82.90 Acute embolism and thrombosis of unspecified vein
CPT/HCPCS: 85610

== ENCOUNTER → 2025-04-02 | Outpatient (CLI) | payer MEDICARE, OTHER ==
[2025-04-02 08:16] LABS: Prothrombin Time Results 19.3 Sec (9.7-11.5)
== END | disposition home or self-care (01) ==
LOC: LAB 07:00 → LAB SHORT 07:00
PROVIDERS: Physician Assistant
DX: I82.409 Acute embolism and thrombosis of unspecified deep veins of unspecified lower extremity (principal)
CPT/HCPCS: 85610

== ENCOUNTER → 2025-04-13 | Outpatient (CLI) | payer MEDICARE, OTHER ==
[2025-04-13 08:30] LABS: Prothrombin Time Results 22.6 Sec (9.7-11.5)
== END ==
LOC: LAB 06:00 → LAB SHORT 06:00
PROVIDERS: Physician Assistant
DX: I82.409 Acute embolism and thrombosis of unspecified deep veins of unspecified lower extremity (principal)
CPT/HCPCS: 85610

== ENCOUNTER → 2025-04-17 | Outpatient (CLI) | payer MEDICARE, OTHER ==
[2025-04-17 09:19] LABS: Prothrombin Time Results 20.4 Sec (9.7-11.5)
== END | disposition home or self-care (01) ==
LOC: LAB 06:00 → LAB SHORT 06:00
PROVIDERS: Physician Assistant
DX: I82.409 Acute embolism and thrombosis of unspecified deep veins of unspecified lower extremity (principal)
CPT/HCPCS: 85610

== ENCOUNTER 2025-04-24 14:45 | Emergency (ER) | payer MEDICARE, OTHER ==
[~2025-04-24] VITALS: Ht 157.5 cm; Wt 105.2 kg
[2025-04-24 15:38] LABS: BASOPHILS ABSOLUTE AUTO 0.03 K/mm3 (0.00-0.23); BASOPHILS PERCENT AUTO 0 % (0-2); EOSINOPHILS ABSOLUTE AUTO 0.62 K/mm3 (0.00-0.68); EOSINOPHILS PERCENT AUTO 9 % (0-6); Hematocrit 29.7 % (33.0-51.0); Hemoglobin 9.4 g/dL (11.5-16.0); IMMATURE GRAN ABSOLUTE AUTO 0.05 K/mm3 (0.00-0.10); IMMATURE GRAN PERCENT AUTO 1 % (0-1); LYMPHOCYTES ABSOLUTE AUTO 1.07 K/mm3 (0.84-5.20); LYMPHOCYTES PERCENT AUTO 15 % (21-46); MONOCYTES ABSOLUTE AUTO 0.44 K/mm3 (0.16-1.47); MONOCYTES PERCENT AUTO 6 % (4-13); Mean Corpuscular HGB Conc 31.6 g/dL (31.5-36.5); Mean Corpuscular Volume 91 fL (80-100); NEUTROPHILS ABSOLUTE AUTO 4.76 K/mm3 (1.96-9.15); NEUTROPHILS PERCENT AUTO 68 % (41-73); NRBC ABSOLUTE 0.00 K/mm3 (0.00-0.02); NRBC Auto 0.0 /100 WBC (0.0-0.2); Platelet Count 182 K/mm3 (150-400); RDW Coefficient Variation 13.9 % (11.7-14.2); RDW Standard Deviation 47.1 fL (35.1-46.3)
[2025-04-24 16:01] LABS: Alanine Aminotransfer (ALT/SGP 44.0 U/L (12-78); Albumin, Blood 3.9 g/dL (3.4-5.0); Albumin/Globulin Ratio 0.9 (0.8-1.8); Anion Gap 10.0 mmol/L (3-11); Aspartate Aminotrans (AST/SGOT 24.0 U/L (12-37); Bilirubin, Total 0.5 mg/dL (0.1-1.0); Blood Urea Nitrogen 55.0 mg/dL (8-24); CO2, Blood 20.0 mmol/L (21-32); Calcium, Blood 8.6 mg/dL (8.5-10.1); Chloride, Blood 114.0 mmol/L (98-108); Creatinine, Blood 4.81 mg/dL (0.40-1.00); Globulin, Blood 4.5 g/dL (2.2-4.0); Glucose, Blood 147.0 mg/dL (70-99); Potassium, Blood 4.3 mmol/L (3.5-5.5); Sodium, Blood 140.0 mmol/L (136-145); Total Protein, Blood 8.4 g/dL (6.4-8.2)
[2025-04-24 18:14] VITALS: BP 198/79
== END 2025-04-24 18:13 | disposition left against medical advice (07) ==
LOC: ER 14:45
PROVIDERS: Emergency Medicine
DX: T82.42XA Displacement of vascular dialysis catheter, initial encounter (principal); E11.22 Type 2 diabetes mellitus with diabetic chronic kidney disease; N18.6 End stage renal disease; I10 Essential (primary) hypertension; Z79.4 Long term (current) use of insulin; Z79.01 Long term (current) use of anticoagulants; Z79.899 Other long term (current) drug therapy; Z88.8 Allergy status to other drugs, medicaments and biological substances
CPT/HCPCS: 80053; 85025; 99283